=== PATIENT | female | born 1955 | race Caucasian/White ===

== ENCOUNTER 2023-01-07 08:59 | Outpatient (CLI) | payer MEDICARE, SELFPAY | END 2023-01-07 09:00 | disposition home or self-care (01) | PROVIDERS: Visit Provider Orthopaedic Surgery Sports Medicine | DX: Z01.818 Encounter for other preprocedural examination (principal) | CPT/HCPCS: 36415; 86850; 86900; 86901 ==

== ENCOUNTER 2023-01-09 09:41 | Day surgery (SDC) | payer MEDICARE, SELFPAY ==
[2023-01-09] VITALS (19 sets, daily range): BP systolic 94–148; BP diastolic 51–88; PULSE 62–78; RESP 12–20; TEMP 35.6–36.7; O2SAT 94–100; BMI 33.7
[2023-01-09] MEDS: LACTATED RINGERS 1000 ML 1,000 ML 100 ML IV (09:20)
--- NOTE | 2023-01-09 09:58 | CRLHL7_ITS ---
For Patients: As a result of the Cures Act, medical imaging exams and procedure reports are released immediately into your electronic medical record. You may view this report before your referring provider. If you have questions, please contact your health care provider. Indication: POST OP LEFT CLAUDIA Technique: AP hip centered pelvis and lateral view left hip Findings/Impression: Hardware from a left total hip arthroplasty is in satisfactory position. Bone alignment is normal. No sign of acute fracture. Postop changes are within normal limits. Dictated by Matias Villanueva MD @ 01/10/2023 10:29:06 AM (Electronically Signed)
[2023-01-09] MEDS: OXYCODONE (CR) 10 MG TAB.ER.12H PO (10:26)
[2023-01-09] MEDS: SODIUM CHLORIDE 0.9 % (FLUSH) 10 ML SYRINGE IVF (10:35)
--- NOTE | 2023-01-09 10:49 | SUR.PREOP ---
TIME?OUT:?1050 PT/RN/MDA?VERIFICATION?OF?SURGICAL?SITE,?PROCEDURE,?AND?CONSENT OBTAINED?PRIOR?TO?INVASIVE?PROCEDURE.
[2023-01-09] MEDS: MIDAZOLAM HCL 1 MG/ML inj IVP (10:50)
[2023-01-09] MEDS: fentaNYL 100 MCG/2 ML inj IVP (10:50)
[2023-01-09] MEDS: CEFAZOLIN 2 GM in 0.9 % SODIUM CHLORIDE Mini-bag 100 ML IVPB ×2 (11:14→16:08)
--- NOTE | 2023-01-09 11:15 | CRLHL7_ITS ---
For Patients: As a result of the Cures Act, medical imaging exams and procedure reports are released immediately into your electronic medical record. You may view this report before your referring provider. If you have questions, please contact your health care provider. Indication: Hip replacement surgery Technique: AP hip fluoroscopic images. Fluoroscopy time 41.1 seconds. Findings/Impression: Hardware from a left total hip arthroplasty is in satisfactory position. Dictated by Matias Villanueva MD @ 01/09/2023 1:24:00 PM (Electronically Signed)
--- NOTE | 2023-01-09 11:16 | P.NB_ITS ---
Nerve Block Nerve Block Time Seen by Provider: 10:55 Date Seen: 01/09/23 Type of block requested by surgeon for post-operative analgesia: SIMONE/LFCN Side: left Time out performed: Yes Verification of patient name: Yes Verification of date of : Yes Site marking: site marked Name of person performing procedure: Julius Continuous monitoring Was continuous monitoring of O2 sat, B/P, satellite project site monitor, recorded every 15 minutes?: Yes Procedure Checklist: sterile prep, needles and gloves Ultrasound guided. Images saved: Yes Medications given in 5ml increments after negative aspiration: Ropivicaine %: 0.5 mL: 30 Needle gauge: 20 Decadron (mg): 10 Precedex (mcg): 25 Patient tolerated procedure well: Yes Additional comments: Needle noted below psoas tendon needle noted adjacent to LFCN Block Charges Block Charge (with Pro Fee): Other Periph Nerve Block Use of Ultrasound Machine for Block: Yes- US Guidance/pain block
--- NOTE | 2023-01-09 11:16 | W.ANESCHARGE ---
Anesthesia Charges Start Date/Time Anesthesia Start Date: 01/09/23 Anesthesia Start Time: 11:05 Stop Date/Time Anesthesia Stop Date: 01/09/23 Anesthesia Stop Time: 13:31
--- NOTE | 2023-01-09 12:50 | P.ORPRC_ITS ---
Procedure Note Date of procedure: 01/09/23 Procedure: PREOPERATIVE DIAGNOSIS: 1. Left hip osteoarthritis, severe, primary POSTOPERATIVE DIAGNOSIS: 1. Left hip osteoarthritis, severe, primary PROCEDURE: 1. Left total hip arthroplasty-anterior approach 2. [id number] - intraoperative fluoroscopy up to 1 hour. SURGEON: Sunny Craven MD. SENIOR CYBER SECURITY ANALYST: Elias Galvez PA-C; YASHIRA Sabillon - Of note, a skilled executive assistant to general counsel was critical for this case to aid in patient positioning, tissue retraction, limb manipulation/positioning, dislocation/relocation, patient safety, and closure. ANESTHESIA: Spinal anesthetic EBL: 400 mL IMPLANTS: DePuy J&J uncemented total hip [place] cup size 54, hole eliminator, +0 neutral liner Actis stem, standard offset, size 8 +8.5 mm ceramic 36 mm head. COMPLICATIONS: None evident INDICATIONS: The patient is a pleasant 67-year-old female who has experienced severe left hip pain and difficulty bearing weight. Workup included x-rays which revealed severe osteoarthrosis in the hip. Given the deformity, the dysfunction, and the pain, as well as the failure of nonoperative management, recommendation was made for surgery. FINDINGS: Large effusion upon entering joint. Full-thickness chondral loss broadly to the femoral head as well as acetabular and femoral head/neck junction osteophytes. DESCRIPTION OF PROCEDURE: Following a thorough discussion of risks, benefits, and alternatives consent was obtained and the left hip was marked. The patient was brought to the operating room and placed supine on the operating table. Induction of anesthesia was undertaken. 2 g IV Ancef and 1 g tranexamic acid was administered within 1 hr of incision preoperatively. Proper time-out was performed identifying proper patient, site, procedure. The operative extremity was prepped and draped in the appropriate sterile fashion using ChloraPrep after the patient was positioned on the [place] table with head in neutral alignment and all bony prominences well padded. C-arm fluoroscopic imaging was utilized to confirm proper pelvis rotation and position, and to get true AP films of both the contralateral left, and the affected left hip. This is for comparison. A longitudinal incision was made starting approximately 1 cm distal to the ASIS, and 3-4 cm lateral. The incision was extended distally aiming toward the lateral border the patella. Sharp incision through skin and bovie cautery through the subcutaneous tissue allowed identification of the TFL fascia. This was sharply divided, and the fascia bluntly released from the muscle fibers as we dissected medial. Upon coming to the medial border, we were able to retract the TFL laterally, and penetrated the deeper fascia and identify the crossing circumflex vessels. These were ligated/cauterized. The rectus was elevated from the capsule, and retractors placed laterally and medially along the femoral neck to help with visualization of the capsule. We then performed an inverted T capsulotomy. The capsule was tagged for later repair. Retractors were placed inside the capsule. The femoral neck was visualized after releasing medially down to the lesser trochanter, along the saddle laterally, and up onto the acetabulum. The femoral neck cut was made in line with our preoperative templating. The head was removed in a single piece, and sized. We turned our attention to acetabular preparation. Initially, the labrum was resected from around the perimeter, the pulvinar was excised, allowing us to visualize the false wall. We started the reaming with a 43 mm reamer. This was medialized down to the true wall. We then enlarged our reamers sequentially up to one size less than the selected cup size. We trialed at the same size and found it to have an excellent fit. The selected cup was then opened, inserted, and impacted in line with the goal of 40-45? of abduction, and 20-25? of anteversion. This was confirmed on C-arm fluoroscopic imaging to be in the appropriate/goal position. Once the cup was placed we placed a hole eliminator and a liner consistent with preop planning. Attention was turned to the femoral preparation. The limb was extended, externally rotated, and adducted. The posteromedial capsule was released, as retractors were placed allowing excellent access to the proximal femur. Initially a box truck driver was followed by canal finder followed by various broaches. We broached sequentially up to size noted above, found it to have excellent rotational control, and trialing various heads and necks, revealed that appropriate neck offset, and the above noted head size provided the greatest stability, and mormonism of length, and offset. C-arm fluoroscopic imaging confirmed position of the stem, as well as leg lengths, which were compared with the pre procedure all fluoroscopic images. Trial implants were removed, the real femoral stem inserted, as was the ceramic head. After reducing, the leg was placed through range of motion and stability was confirmed anterior, posterior, and lateral. A 3 min Betadine soak was then performed, and thorough irrigation with normal saline followed. Closure of the capsule was performed with #1 PDS. Bleeding was confirmed to be controlled at this stage, and the TFL fascia was closed with #0 strata fix. Subcutaneous, and subcuticular closure was performed with 2-0 Vicryl and 4-0 Monocryl, respectively. Dressings were applied, and the patient was awoken from anesthesia and transferred the PACU in stable condition. A skilled executive assistant to general counsel was critical for this case to aid in patient positioning, tissue retraction, proximal femur exposure, limb manipulation/positioning, dislocation/relocation, patient safety, and closure. PLAN: 1. Weight bear as tolerated operative extremity. 2. 23 hr perioperative antibiotics. 3. Ice. 4. PT/OT consults for ambulation assistance/mobility education. 5. Social work consult for discharge planning. 6. DVT prophylaxis with at SCDs, Aristeo Hose, and Xarelto x5 days followed by aspirin for a total of 1 month..
--- NOTE | 2023-01-09 13:28 | W.ANESCHARGE ---
Anesthesia Charges Start Date/Time Anesthesia Start Date: 01/09/23 Anesthesia Start Time: 11:05 Stop Date/Time Anesthesia Stop Date: 01/09/23 Anesthesia Stop Time: 13:31
--- NOTE | 2023-01-09 14:56 | P.IMCN_ITS ---
Date of Consult Patient: [facility] Patient Consult date: 01/09/23 Requesting Physician: Orthopedics Primary Care Provider: Not a Local Provider Consult Narrative Reason for consult: medication management Narrative: Sunshine Higuera is a 67 year old healthy female who underwent an elective left total hip arthroplasty today. Operative and postoperative course have been unev entful. Pain is well controlled at this time. Review of Systems Status of ROS: Reports: 10 or more systems reviewed and unremarkable except as noted in History and below PFSH PFSH Medical History (Updated 01/09/23 @ 15:51 by Jennifer Castaneda MD) Arthritis Back pain Osteoarthritis of neck Seasonal allergies Surgical History (Updated 01/09/23 @ 14:58 by Jennifer Castaneda MD) History of abdominal surgery (1988) History of appendectomy (1963) Hx of tonsillectomy (1961) S/P total left hip arthroplasty Family History (Updated 01/02/23 @ 13:22 by Nimo Lay PA-C) Father Heart problem High blood pressure Cancer CHF (congestive heart failure) Mother High blood pressure Dementia Maternal Grandfather High blood pressure Stroke Maternal Grandmother High blood pressure Stroke Paternal Grandfather Diabetes High blood pressure Stroke Paternal Grandmother High blood pressure Stroke Brother Hemiplegia DVT (deep venous thrombosis) Brother Prostate cancer Social History (Updated 01/09/23 @ 15:48 by Jennifer Castaneda MD) Narrative: Lives independently. 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 Her friend and co-worker, Vivien, is here with her today and is of good support. Sunshine is a lifelong nonsmoker. Drinks 2 gin and tonics every 3-4 weeks. Denies recreational drug use. Smoking Status: Never smoker Do you use any of these nicotine containing products: None Second hand tobacco smoke exposure: No How often do you have a drink containing alcohol: monthly or less Alcohol type: wine and hard liquor How many standard drinks containing alcohol do you have on a typical day: 1 or 2 How often do you have six or more drinks on one occasion: Never AUDIT-C Alcohol total score: 1 Non-prescribed substance use: denies use Caffeine: Yes (coffee, 1-2 cups/day) service: No Meds Home Medications and Allergies Home Medications Medication Instructions Recorded Confirmed Type fexofenadine 60 mg tablet 180 mg PO Q24H 01/02/23 01/09/23 History Allergies Allergy/AdvReac Type Severity Reaction Status Date / Time acetaminophen Allergy Severe Hives Verified 01/09/23 10:01 [From Tylenol PM] amoxicillin Allergy Severe Hives Verified 01/09/23 10:01 diphenhydramine Allergy Severe Hives Verified 01/09/23 10:01 [From Tylenol PM] naproxen Allergy Severe Hives Verified 01/09/23 10:01 sulfamethoxazole Allergy Severe Hives Verified 01/09/23 10:01 [From Bactrim] trimethoprim [From Bactrim] Allergy Severe Hives Verified 01/09/23 10:01 ibuprofen Allergy Intermediate Hives Verified 01/09/23 10:01 latex Allergy Intermediate Rash Verified 01/09/23 10:01 NSAIDS (Non-Steroidal Allergy Unknown Verified 01/09/23 10:01 Anti-Inflamma Sulfa (Sulfonamide Allergy Unknown Verified 01/09/23 10:01 Antibiotics) band-aid Allergy Intermediate Rash Uncoded 01/02/23 12:53 Exam Narrative: Exam Narrative: General: No acute distress. Awake alert oriented x3. Obese. HEENT: Normocephalic atraumatic, pupils equally round and reactive to light and accommodation. Oropharynx clear. Mucous membranes are moist. No cervical lymphadenopathy, thyromegaly or carotid bruits. No JVD. Cardiovascular: Regular rate and rhythm. No murmurs, gallops, or rubs. Chest: No increased work of breathing. Clear to auscultation bilaterally. No crackles or wheezes. Abdomen: Bowel sounds present. Soft, nondistended, nontender. No hepatosplenomegaly or masses. Extremities: Left hip bandage is clean, dry, and intact. No edema, no cyanosis or clubbing. Skin: No jaundice, no pallor, no rashes. Const: Vital Signs, click to edit/add: Vital Signs - 24 hr 01/09/23 10:06 01/09/23 10:50 01/09/23 10:55 Temperature 98.1 F Pulse Rate 73 74 73 Pulse Rate [Right Pulse Oximeter] Respiratory Rate 16 16 16 Blood Pressure 114/87 112/85 113/51 L Blood Pressure [Le ft Arm] Blood Pressure [Ri ght Arm] Pulse Oximetry 97 98 99 Oxygen Delivery Me thod Nasal Cannula Nasal Cannula Oxygen Flow Rate 2 2 01/09/23 13:32 01/09/23 13:39 01/09/23 13:45 Temperature 97.2 F L Pulse Rate 71 73 68 Pulse Rate [Right Pulse Oximeter] Respiratory Rate 16 16 14 Blood Pressure 94/55 L 100/58 L 100/62 Blood Pressure [Le ft Arm] Blood Pressure [Ri ght Arm] Pulse Oximetry 95 99 99 Oxygen Delivery Me thod Room Air Nasal Cannula Nasal Cannula Oxygen Flow Rate 01/09/23 13:50 01/09/23 13:55 01/09/23 14:00 Temperature Pulse Rate 72 72 72 Pulse Rate [Right Pulse Oximeter] Respiratory Rate 14 14 12 Blood Pressure 98/64 101/61 100/53 L Blood Pressure [Le ft Arm] Blood Pressure [Ri ght Arm] Pulse Oximetry 98 98 100 Oxygen Delivery Me thod Nasal Cannula Nasal Cannula Nasal Cannula Oxygen Flow Rate 2 01/09/23 14:11 01/09/23 14:15 01/09/23 14:30 Temperature 96.0 F L 96.4 F L 96.6 F L Pulse Rate 66 Pulse Rate [Right Pulse Oximeter] 63 78 Respiratory Rate 20 20 20 Blood Pressure Blood Pressure [Le ft Arm] 102/72 Blood Pressure [Ri ght Arm] 102/72 103/66 116/75 Pulse Oximetry 96 Oxygen Delivery Me thod Room Air Room Air Room Air Oxygen Flow Rate 01/09/23 14:45 Temperature 96.6 F L Pulse Rate Pulse Rate [Right Pulse Oximeter] 74 Respiratory Rate 20 Blood Pressure Blood Pressure [Le ft Arm] Blood Pressure [Ri ght Arm] 105/74 Pulse Oximetry 94 Oxygen Delivery Me thod Room Air Oxygen Flow Rate Labs Labs: Ordering Physician: Sunny Craven M.D. Date of Service: 01/09/23 Procedure(s): XR hip LT 1V Accession Number(s): [id number] cc: Sunny Craven M.D.; Provider,Not a Local ~ For Patients: As a result of the Century Cures Act, medical imaging exams and procedure reports are released immediately into your electronic medical record. You may view this report before your referring provider. If you have questions, please contact your health care provider. Indication: Hip replacement surgery Technique: AP hip fluoroscopic images. Fluoroscopy time 41.1 seconds. Findings/Impression: Hardware from a left total hip arthroplasty is in satisfactory position. Dictated by Matias Villanueva MD @ 01/09/2023 1:24:00 PM (Electronically Signed) Assessment and Plan Assessment and plan (1) S/P total left hip arthroplasty: Status: Acute (2) Seasonal allergies: Status: Chronic Plan Routine postop cares. Pain is well controlled. She is currently taking fexofenadine every day for her seasonal allergies, so I will continue that while she is here. Thank you for the consult.
--- NOTE | 2023-01-09 18:22 | PC.NURSE ---
Addendum entered by Jacqueline Diaz RN 01/09/23 18:32: and changed the linen. She has been in the recliner since around 1600. VSS did tolerate a regular diet for dinner. Will continue to monitor until shift handoff. Original Note: End of Shift Note: Patient arrived to the unit around 1400 today from Surgery. Patient had spinal anesthesia with a block. Upon arrival pain level is 2. Pain level has not increase and she denies the need for pain medication. She was inc of urine as she did not realize she had to go as bottom is still numb. We did get her up to the recliner
[2023-01-09] MEDS: SENNOSIDES 1 TAB TABLET 2 TAB PO (21:26)
[2023-01-09] MEDS: OXYCODONE 5 MG TABLET PO (21:27)
--- NOTE | 2023-01-09 23:46 | PC.NURSE ---
VSS. 6 hour outcomes met. Up with 1 minimal assist, hiro activity well. Pain /, 2.5 mg Oxycodone given. Voiding large amounts, saline locked.
[2023-01-10] VITALS (11 sets, daily range): BP systolic 86–130; BP diastolic 48–92; PULSE 58–81; RESP 16–18; TEMP 36.4–36.6; O2SAT 97–100
[2023-01-10] MEDS: OXYCODONE 5 MG TABLET PO ×2 (01:37→06:55)
[2023-01-10] MEDS: CEFAZOLIN 2 GM in 0.9 % SODIUM CHLORIDE Mini-bag 100 ML IVPB ×2 (01:38→10:56)
--- NOTE | 2023-01-10 05:37 | PC.NURSE ---
Pt pleasant and cooperative. Up with assist of 1 a walker and a gait belt. She has voided. Passing flatus. Tolerating a reg diet. Pain controlled with 2.5mg of oxycodone.
[2023-01-10 06:40] LABS: Basophils Percent Auto 0.1 % (0.0-3.0); Eosinophils Percent Auto 0.2 % (0.0-7.0); Hematocrit 36.9 % (33.0-51.0); Hemoglobin* 12.3 gm/dL (12.0-16.0); Immature Granulocytes Pct Auto 1.6 %; Lymphocytes Percent Auto 10.4 % (20-44); Mean Corpuscular HGB Conc 33 gm/dL (32-36); Mean Corpuscular Hemoglobin 27 pg (26-34); Mean Corpuscular Volume 81 fL (80-100); Monocytes Percent Auto 8.4 % (0.0-11.0); Neutrophils Percent Auto 79.3 % (42.0-72.0); Platelet Count* 209 K/uL (140-440); RDW Coefficient of Variation % 13.3 % (11.5-15.5); Red Blood Count 4.58 m/uL (4.00-5.20); White Blood Count* 12.08 K/uL (4.50-11.00)
[2023-01-10 06:47] LABS: Slide Review Reflex No
[2023-01-10 06:55] LABS: Sodium* 135 mmol/L (135-149)
[2023-01-10 06:56] LABS: Potassium* 4.1 mmol/L (3.6-5.1)
[2023-01-10 06:58] LABS: Creatinine* 0.6 mg/dL (0.5-1.5); Est. Creatinine Clearance* 51.81; Estimated Glomerular Filt Rate 99 ml/min
[2023-01-10 06:59] LABS: Blood Urea Nitrogen* 11 mg/dL (7-30)
[2023-01-10] MEDS: LACTATED RINGERS 1000 ML 500 ML IV ×2 (09:09→10:59)
--- NOTE | 2023-01-10 09:20 | P.ORPN_ITS ---
Subjective Subjective Date Seen: 01/10/23 Principal diagnosis: Status postop day 1, left total hip arthroplasty - anterior approach Interval history: Patient reports doing well. No acute events over night. Describes pain as more of a discomfort, which is minimal. Pain managed with scheduled/PRN medications and ice. DVT prophylaxis rivaroxaban, bilateral knee high Aristeo stockings, and SCDs.. Denies fevers, chills, aches, N/V, CP, SOB/OVALLES, tachycardia, or ligh theadedness. Ortho Exam Narrative Exam Narrative: -Patient appears comfortable in recliner; no apparent acute distress. Her friend is present. -Alert and oriented times 3 -Operative hip mildly swollen; soft tissues supple; no obvious erythema. Ecchymosis minimal. Warmth appropriate -Surgical dressing clean, dry, intact; no obvious drainage, no erythematous streaking peripheral to the bandage -Bilateral calves soft and supple; no significant swelling, edema, tenderness, erythema, discoloration, warmth, or palpable cords -2+ DP/PT pulses, intact dermatomes and myotomes distally (5/5 strength). No numbness about the lateral femoral cutaneous nerve distribution. Const Vital Signs, click to edit/add: Vital Signs - 24 hr 01/09/23 10:06 01/09/23 10:50 01/09/23 10:55 Temperature 98.1 F Pulse Rate 73 74 73 Pulse Rate [Right Pulse Oximeter] Respiratory Rate 16 16 16 Blood Pressure 114/87 112/85 113/51 L Blood Pressure [Left Arm] Blood Pressure [Right Arm] Pulse Oximetry 97 98 99 Oxygen Delivery Method Nasal Cannula Nasal Cannula Oxygen Flow Rate 2 2 01/09/23 13:32 01/09/23 13:39 01/09/23 13:45 Temperature 97.2 F L Pulse Rate 71 73 68 Pulse Rate [Right Pulse Oximeter] Respiratory Rate 16 16 14 Blood Pressure 94/55 L 100/58 L 100/62 Blood Pressure [Left Arm] Blood Pressure [Right Arm] Pulse Oximetry 95 99 99 Oxygen Delivery Method Room Air Nasal Cannula Nasal Cannula Oxygen Flow Rate 01/09/23 13:50 01/09/23 13:55 01/09/23 14:00 Temperature Pulse Rate 72 72 72 Pulse Rate [Right Pulse Oximeter] Respiratory Rate 14 14 12 Blood Pressure 98/64 101/61 100/53 L Blood Pressure [Left Arm] Blood Pressure [Right Arm] Pulse Oximetry 98 98 100 Oxygen Delivery Method Nasal Cannula Nasal Cannula Nasal Cannula Oxygen Flow Rate 2 01/09/23 14:11 01/09/23 14:15 01/09/23 14:30 Temperature 96.0 F L 96.4 F L 96.6 F L Pulse Rate 66 Pulse Rate [Right Pulse Oximeter] 63 78 Respiratory Rate 20 20 20 Blood Pressure Blood Pressure [Left Arm] 102/72 Blood Pressure [Right Arm] 102/72 103/66 116/75 Pulse Oximetry 96 Oxygen Delivery Method Room Air Room Air Room Air Oxygen Flow Rate 01/09/23 14:45 01/09/23 16:44 01/09/23 16:00 Temperature 96.6 F L 96.6 F L Pulse Rate Pulse Rate [Right Pulse Oximeter] 74 74 64 Respiratory Rate 20 20 20 Blood Pressure Blood Pressure [Left Arm] Blood Pressure [Right Arm] 105/74 148/73 H 124/80 Pulse Oximetry 94 98 97 Oxygen Delivery Method Room Air Room Air Room Air Oxygen Flow Rate 01/09/23 17:00 01/09/23 18:00 01/09/23 19:00 Temperature 97.3 F L Pulse Rate Pulse Rate [Right Pulse Oximeter] 76 74 62 Respiratory Rate 20 20 16 Blood Pressure Blood Pressure [Left Arm] Blood Pressure [Right Arm] 120/74 113/64 109/70 Pulse Oximetry 97 98 97 Oxygen Delivery Method Room Air Room Air Room Air Oxygen Flow Rate 01/09/23 19:50 01/10/23 03:00 Temperature 97.4 F L 97.8 F Pulse Rate Pulse Rate [Right Pulse Oximeter] 70 69 Respiratory Rate 18 16 Blood Pressure Blood Pressure [Left Arm] Blood Pressure [Right Arm] 131/88 130/75 Pulse Oximetry 96 98 Oxygen Delivery Method Room Air Room Air Oxygen Flow Rate Assessment and Plan Assessment and plan (1) S/P total left hip arthroplasty: Problem details: POD 1 left total hip arthroplasty - anterior approach Status: Acute (2) Seasonal allergies: Status: Chronic Plan - Complete 23 hour perioperative antibiotics. - PT/OT consult for education and assistance. - Social work consult for discharge planning - Prescribed analgesics as needed - DVT prophylaxis: Rivaroxaban, bilateral knee high Aristeo Hose stockings and SCDs - Anticipation is for discharge to home today 01/10/2023 if the patient remains medically stable, pain is controlled, and they are safe with mobilization. A friend will be staying with her.
--- NOTE | 2023-01-10 09:22 | P.DS_ITS ---
DS: Providers Provider Date Seen: 01/10/23 Date of admission: Med/Surg Recovery 01/09/2023 Primary care physician: Not a Local Provider Consults: 01/09/23 14:19 Consult to Occupational Therapy [CONS] Routine Comment: Reason(s) for OT Consult:: ADLs Prior to Discharge Any Restrictions?:: No Restrictions Comment: Consult to Physical Therapy [CONS] Routine Comment: Ambulate in the pete today Reason(s) for PT Consult:: Evaluate and Treat Any Restrictions?:: No Restrictions Comment: Nursing Activity Consult to Physician [CONS] Routine Comment: Consulting Provider: Hospitalists Has provider been notified: No Consult to [employer] [CONS] Routine Comment: Reason for Consult:: Discharge Planning Needs Attending Physician on discharge: Sunny Craven MD Date of Discharge: 01/10/23 DS: Diagnosis Discharge Diagnosis (1) S/P total left hip arthroplasty: Status: Acute Problem details: POD 1 left total hip arthroplasty - anterior approach DS: Summary Hospital Course Hospital Course: The patient has a history of left hip osteoarthritis, primary, severe. After appropriate preoperative evaluation, the patient underwent left total hip arthroplasty. Postoperatively given anticoagulation for deep vein thrombosis prophylaxis. They progressed to PT/OT and were felt ready and prepared for discharge to home with appropriate pain medication and anticoagulation medications. Status at Discharge Functional status at discharge: uses cane/walker Overall status at discharge: patient is progressing back to baseline Time Spent with Patient Time attestation: Total time spent providing and/or coordinating discharge services: Time spent: Less than 30 minutes Exam Const: Vital Signs, click to edit/add: Vital Signs - 24 hr 01/09/23 10:06 01/09/23 10:50 01/09/23 10:55 Temperature 98.1 F Pulse Rate 73 74 73 Pulse Rate [Right Pulse Oximeter] Respiratory Rate 16 16 16 Blood Pressure 114/87 112/85 113/51 L Blood Pressure [Le ft Arm] Blood Pressure [Ri ght Arm] Pulse Oximetry 97 98 99 Oxygen Delivery Me thod Nasal Cannula Nasal Cannula Oxygen Flow Rate 2 2 01/09/23 13:32 01/09/23 13:39 01/09/23 13:45 Temperature 97.2 F L Pulse Rate 71 73 68 Pulse Rate [Right Pulse Oximeter] Respiratory Rate 16 16 14 Blood Pressure 94/55 L 100/58 L 100/62 Blood Pressure [Le ft Arm] Blood Pressure [Ri ght Arm] Pulse Oximetry 95 99 99 Oxygen Delivery Me thod Room Air Nasal Cannula Nasal Cannula Oxygen Flow Rate 01/09/23 13:50 01/09/23 13:55 01/09/23 14:00 Temperature Pulse Rate 72 72 72 Pulse Rate [Right Pulse Oximeter] Respiratory Rate 14 14 12 Blood Pressure 98/64 101/61 100/53 L Blood Pressure [Le ft Arm] Blood Pressure [Ri ght Arm] Pulse Oximetry 98 98 100 Oxygen Delivery Me thod Nasal Cannula Nasal Cannula Nasal Cannula Oxygen Flow Rate 2 01/09/23 14:11 01/09/23 14:15 01/09/23 14:30 Temperature 96.0 F L 96.4 F L 96.6 F L Pulse Rate 66 Pulse Rate [Right Pulse Oximeter] 63 78 Respiratory Rate 20 20 20 Blood Pressure Blood Pressure [Le ft Arm] 102/72 Blood Pressure [Ri ght Arm] 102/72 103/66 116/75 Pulse Oximetry 96 Oxygen Delivery Me thod Room Air Room Air Room Air Oxygen Flow Rate 01/09/23 14:45 01/09/23 16:44 01/09/23 16:00 Temperature 96.6 F L 96.6 F L Pulse Rate Pulse Rate [Right Pulse Oximeter] 74 74 64 Respiratory Rate 20 20 20 Blood Pressure Blood Pressure [Le ft Arm] Blood Pressure [Ri ght Arm] 105/74 148/73 H 124/80 Pulse Oximetry 94 98 97 Oxygen Delivery Me thod Room Air Room Air Room Air Oxygen Flow Rate 01/09/23 17:00 01/09/23 18:00 01/09/23 19:00 Temperature 97.3 F L Pulse Rate Pulse Rate [Right Pulse Oximeter] 76 74 62 Respiratory Rate 20 20 16 Blood Pressure Blood Pressure [Le ft Arm] Blood Pressure [Ri ght Arm] 120/74 113/64 109/70 Pulse Oximetry 97 98 97 Oxygen Delivery Me thod Room Air Room Air Room Air Oxygen Flow Rate 01/09/23 19:50 01/10/23 03:00 Temperature 97.4 F L 97.8 F Pulse Rate Pulse Rate [Right Pulse Oximeter] 70 69 Respiratory Rate 18 16 Blood Pressure Blood Pressure [Le ft Arm] Blood Pressure [Ri ght Arm] 131/88 130/75 Pulse Oximetry 96 98 Oxygen Delivery Me thod Room Air Room Air Oxygen Flow Rate DS: Data Data Completed and Pending Labs on day of discharge: Labs from last 24 hours 01/10/23 01/10/23 06:11 06:11 WBC 12.08 H RBC 4.58 Hgb 12.3 Hct 36.9 MCV 81 MCH 27 MCHC 33 RDW Coeff of Mikala 13.3 Plt Count 209 Neut % (Auto) 79.3 H Lymph % (Auto) 10.4 L [place] % (Auto) 8.4 Eos % (Auto) 0.2 Baso % (Auto) 0.1 Neut # (Auto) 9.60 H Lymph # (Auto) 1.30 [place] # (Auto) 1.00 H Eos # (Auto) 0.00 Baso # (Auto) 0.00 Sodium 135 Potassium 4.1 BUN 11 Creatinine 0.6 Estimated Creat Clear 51.81 Estimated GFR 99 Discharge Plan Discharge Disposition: Home, Self-Care Discharging Surgeon: Sunny Craven Follow-Up Appointment: 1 week PO with Elias BARNETT Prescriptions: New sennosides-docusate sodium [Senna-S] 8.6-50 mg tablet 1 - 4 tab-cap PO BID PRN (Reason: constipation) Qty: 60 0RF Rx Instructions: Hold medication if experiencing loose stools. aspirin 81 mg tablet,delayed release (DR/EC) 81 mg PO BID Qty: 50 0RF Rx Instructions: Medication to help prevent blood clots postoperatively; take TWICE daily. oxycodone 5 mg tablet 2.5 - 5 mg PO Q4-6H MDD 6 PRN (Reason: pain) Qty: 42 0RF Rx Instructions: Take as needed for postop pain: 2.5mg mild pain, 5mg moderate-severe pain; wean as tolerated. rivaroxaban 10 mg tablet 10 mg PO DAILY Qty: 4 0RF Rx Instructions: Medication for deep vein clot prevention post surgery. Complete this medication before starting Aspirin. Continued fexofenadine 60 mg tablet 180 mg PO Q24H Activity Level: Activity as Tolerated, Weight Bearing as Tolerated, Use Cane and Use Walker Activity Detail: Wound: ?Do not remove original dressing; we will remove this at first postop visit in 1 week. Only remove dressing if integrity is in question. ?No immersing wound in water; showering okay; light scrub with your hand and body soap, rinse, dab dry ?Sutures are under the skin, will dissolve; allow surgical glue to come off naturally; do not scrub the wound or apply ointments/lotions ?Call our office with any redness that streaks, excessive drainage from the wound, or wound gapping. Ice/Elevate: ?Ice as needed for swelling and discomfort (cryocuff or ice pack); elevate frequently above the heart SCOTT socks: ?Wear for 1 month, remove for 1 hour 3 times per day ?These are frustrating to take on/off, but are important for blood clot p revention for 1 month after surgery Blood Clot Prevention (DVT): ?Medication: Rivaroxaban, and transition to 81 mg aspirin by mouth twice daily (total one month of protection). Driving: ?Do not drive while taking narcotic pain medication ?Anticipate 4-6 weeks no driving if operative leg is driving leg Dental: ?No elective dental work for 6 months post-op. If there is an urgent/emergent dental need, contact our office for an antibiotic prescription. Smoking/Alcohol: ?Do not smoke; do no drink alcohol especially when taking postoperative oral narcotic medication Seek Care from you Primary Care Provider if you experience the following issues in the postoperative phase and beyond: ?Bacterial infections such as: pneumonia, bacterial skin infection (cellulitis), UTI, high fever, chills unrelated to the operative body part - call your primary care physician urgently for treatment in hopes to protect your health and the metal implant. Referrals: ?PT, OT per patient preference - evaluate treat total hip arthroplasty protocol (gait training, ROM, ADLs) Follow up: ?Ortho surgeon follow-up in 6 weeks; repeat radiographs AP pelvis, cross-table lateral operative hip ?PA-C visit in 1 week *If there are any acute concerns regarding your surgery, please call our orthopedic clinic ([phone]) Discharge Diet: Regular Patient Instructions: Surgical Site Infections (DC) Forms: Work/School Release Follow-up: Provider,Not a Local [Primary Care Provider] - Discharge Orders: Discharge Order (Routine); Ordered 01/10/23 Ordered By: Elias Galvez Consulting provider completed their portion of the discharge: Yes
[2023-01-10] MEDS: SENNOSIDES 1 TAB TABLET 2 TAB PO (10:58)
[2023-01-10] MEDS: RIVAROXABAN 10 MG TABLET PO (10:58)
--- NOTE | 2023-01-10 11:18 | PC.SOCIAL ---
Met with pt. to discuss discharge plans. Pt. lives in a 2nd floor apartment with an elevator and plans to discharge home with family support. Pt. does not feel she will need any additional resources for assistance at home but is aware she can contact social media designer if she needs assistance.
--- NOTE | 2023-01-10 13:11 | PC.NURSE ---
Pt alert and oriented, pleasant. Vitals stable. Pt had lower BP this AM, 1L LR bolus admin per MD order, BP stable and pt cleared for d/c from MD. Pt denies symptoms and concerns, vitals WDL, pt tolerating activity, diet and voiding without difficulty. IV removed, d/c instructions given to pt, pt's cousin at bedside as well. Pt denies concerns, questions answered. Pt given WC ride out by SHAY at 1300 to family car.
== END 2023-01-10 13:00 | disposition home or self-care (01) ==
LOC: OR 09:42 → MEDSURG 09:47
PROVIDERS: Visit Provider Orthopaedic Surgery Sports Medicine
PROC: (CPT 27130; principal; 2023-01-09 11:15)
DX: M16.12 Unilateral primary osteoarthritis, left hip (principal); J30.2 Other seasonal allergic rhinitis
CPT/HCPCS: 27130; 01214; 36415; 64450; 73501; 76000; 76942; 82565; 84132; 84295; 84520; 85025; 97110; 97116; 97162; 97165; 97535; A9270; C1776; J0690; J1100; J2250; J2370; J2704; J2795; J3010; J7120

== ENCOUNTER 2023-02-14 10:15 | Outpatient (RCR) | payer MEDICARE, SELFPAY ==
--- NOTE | 2023-01-05 13:16 | PT.OPE ---
PT [facility] Outpatient Eval PT [facility] Outpatient Eval Start: 01/05/23 11:54 Freq: Status: Active Protocol: Document 01/05/23 12:09 LOVELY (Rec: 01/05/23 13:14 LOVELY Desktop) E-signed By Stephane Doshi, PT, ATC Physical Therapy Outpatient Evaluation Insurance Information Recert Due Date 04/04/23 Insurance Name Medicare B Medical Diagnosis M16.12 total hip arthroplasty M16.12 unilateral primary OA, left hip Treating Diagnosis L hip pain L hip stiffness Referring MD Levi Subjective Subjective Emilie says she is scheduled for her L CLAUDIA on . She is very content with her preparation for the surgery and has little concern. She has struggled immensely over the past few months with L hip pain, stiffness and multiple functional difficulties. 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 Posture Unable to extend hip in supine position, 15 degrees hip flex position Assessment Assessment/Impression Emilie is a pleasant 66 year old woman scheduled for L CLAUDIA on 01/09/23. Although she lives alone in her apartment, she has assistance scheduled with family to aid with her care. She has struggled with all ADL 's secondary to pain and reduced L hip ROM. Dressing, steps and standing walking have been particularly compensated. She is looking forward to her procedure next week! She has been properly prepared for her CLAUDIA surgery by educating her in post-op pain control strategies, assistive device utilization, her CLAUDIA home ex.s and transfer training. Primary Functional Limitations Standing > 5 min Walking > a few hundred feet Bed transfers Sleeping Plan of Care Rehabilitation Potential Good Physical Therapy Goals 1. To understand and demonstrate correct procedure with assistive device usage, transfers and home ex.s (pre- op goal) 2.Able to lift the L leg from floor to table-bed independently without UE assistance x 4 weeks. 3.Able to walk x 100 feet without assistive device with equal stride length and WB'ing time x 12 weeks 4.L quad set to 4/5. 5.Able to flatten L hip to table or bed, hip ext to zero degrees. 6.Independent self care and mobility x 2 weeks 7.Able to don socks and tie her shoes, hip flex to 90 degrees in sitting. Coordination/Communication With Referral Source Frequency/Duration 1-2x per week 8-16 weeks Patient Will Be Discharged From Therapy Independent w/HEP, Independently Progressing Evaluation Billing Untimed Code Treatment Minutes 30 PT Eval No Charge No Complexity Low Certification Information Initial Certification Date 01/05/23 Ending Certification Date 04/04/23 Provider Signature Shows Agreement With POC & Medical Necessity Physician Signature & Date Requested Please Sign/Date Here Physician Comment/Change : Physician NPI Number #
== END 2023-02-14 14:08 | disposition home or self-care (01) ==
PROVIDERS: Visit Provider Orthopaedic Surgery Sports Medicine
DX: M16.12 Unilateral primary osteoarthritis, left hip (principal); Z96.649 Presence of unspecified artificial hip joint; M25.552 Pain in left hip; M25.652 Stiffness of left hip, not elsewhere classified; Z51.89 Encounter for other specified aftercare
CPT/HCPCS: 97110; 97140; 97161

== ENCOUNTER 2023-06-13 14:13 | Outpatient (CLI) | payer MEDICARE, SELFPAY | END 2023-06-13 14:14 | disposition home or self-care (01) | LOC: INJ CL 14:15 | PROVIDERS: Visit Provider Family Medicine | DX: M17.11 Unilateral primary osteoarthritis, right knee (principal); M25.561 Pain in right knee | CPT/HCPCS: 64454 ==

== ENCOUNTER 2023-07-04 12:46 | Outpatient (CLI) | payer MEDICARE, SELFPAY ==
--- NOTE | 2023-07-04 13:53 | W.ANESCHARGE ---
Anesthesia Charges Start Date/Time Anesthesia Start Date: 07/04/23 Anesthesia Start Time: 14:00 Stop Date/Time Anesthesia Stop Date: 07/04/23 Anesthesia Stop Time: 14:35
--- NOTE | 2023-07-04 14:41 | W.ANESCHARGE ---
Anesthesia Charges Start Date/Time Anesthesia Start Date: 07/04/23 Anesthesia Start Time: 14:00 Stop Date/Time Anesthesia Stop Date: 07/04/23 Anesthesia Stop Time: 14:35
== END 2023-07-04 12:47 | disposition home or self-care (01) ==
LOC: INJ CL 12:48
PROVIDERS: PCP Family Medicine; Visit Provider Family Medicine
DX: M17.11 Unilateral primary osteoarthritis, right knee (principal); M25.561 Pain in right knee; G89.29 Other chronic pain
CPT/HCPCS: 1991; 64624

== ENCOUNTER 2023-07-11 06:25 | Outpatient (CLI) | payer MEDICARE, SELFPAY ==
--- NOTE | 2023-07-11 07:56 | W.ANESCHARGE ---
Anesthesia Charges Start Date/Time Anesthesia Start Date: 07/11/23 Anesthesia Start Time: 07:25 Stop Date/Time Anesthesia Stop Date: 07/11/23 Anesthesia Stop Time: 07:55
--- NOTE | 2023-07-11 08:09 | W.ANESCHARGE ---
Anesthesia Charges Start Date/Time Anesthesia Start Date: 07/11/23 Anesthesia Start Time: 07:25 Stop Date/Time Anesthesia Stop Date: 07/11/23 Anesthesia Stop Time: 07:55
== END 2023-07-11 06:26 | disposition home or self-care (01) ==
LOC: OP CLINIC 06:25
PROVIDERS: PCP Family Medicine; Visit Provider Surgery
DX: Z12.11 Encounter for screening for malignant neoplasm of colon (principal); K63.5 Polyp of colon; K57.30 Diverticulosis of large intestine without perforation or abscess without bleeding
CPT/HCPCS: 00811; 45385; 88305; J2704

== ENCOUNTER 2023-07-26 11:15 | Outpatient (RCR) | payer MEDICARE, SELFPAY ==
--- NOTE | 2023-06-21 18:21 | PT.OPE ---
[facility] Outpatient Eval PT [facility] Outpatient Eval Start: 06/21/23 17:52 Freq: Status: Active Protocol: Document 06/21/23 17:53 LOVELY (Rec: 06/21/23 18:18 LOVELY [id number]) E-signed By Stephane Doshi, PT, ATC Physical Therapy Outpatient Evaluation Insurance Information Insurance Name Medicare B Medical Diagnosis s/p total left hip arthroplasty Z96.642 presence of left artificial hip joint Treating Diagnosis L anterior thigh pain Referring MD [place] Subjective Subjective [place] returns to PT because of nagging L anterior thigh pain-feels knotted all the time. L CLAUDIA 01/09/23 with very good surgical and rehab outcome (completed rehab with no anterior thigh pain at that time.). In April of 2023 she began feeling soreness and tightness in the front of the left thigh. Symptoms have progressively worsened since. Tightness worsens with standing and lessens when sitting although a low grade presence is always there. Lately, the L leg has also felt weaker creating some balance challenges. No report of spasm in the thigh or hip flexor and no pain or tightness in the L hip. 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 She also says she has DJD within both knees that will eventually require replacement . Synvisc no longer lessens knee symptoms so she is planning to have ablation procedures to both knees yet this summer. 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 Back flexion is full and pain free. Ext and L sidebending intensify L thigh-ant hip symptoms. Strength L knee ext 4/5, limited by pain in anterior thigh Swelling L ankle mild to moderate. Compression sleeve being worn. Palpation Some increased sensitivity to palpation over the mid to proximal L thigh. Quad.s and hip flexor. Tender to direct pressure through R SI joint and L5 vertebrae Balance & Gait R SLS x 10, L SLS x 5 Posture mild to moderate lumbar lordois, anterior pelvic tilt presence bilaterally. Other/Pertinent Objective SLR, Slump Test, Valsalva Negative bilaterally Assessment Assessment/Impression Emilie is pleasant and well known in therapy from her recovery from R CLAUDIA earlier in the year. Onset of anterior L quad and hip flexor symptoms in April is creating difficulty with ADL's, work performance and her balance. She has been stretching the L iliopsoas and quadriceps for the past few weeks without it lessening symptoms. The examination did not find any prominent tightness in the thigh or hip muscles. I feel she could be having radicular symptoms extending into the L anterior hip and thigh secondary to neural impingement-stenosis in her lower back. Mechanics of the lumbar spine that close the left side-EXT and L Sidebending reproduce symptoms as does standing. A therapy program addressing L anterior thigh and hip stretching, abdominal-core stabilization and L LE strengthening is advised. Balance exercises should also be built into POC. Primary Functional Limitations Transitions sit to stand Extended standing or walking Plan of Care Rehabilitation Potential Good Physical Therapy Goals 1.Independent and correct performance of HEP for core- abdominal-hip and LE strengthening. 2.Posture awareness with transverse abdominis co- contraction. 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 Coordination/Communication With Referral Source Frequency/Duration 1-2x per week 6-12 weels Patient Will Be Discharged From Therapy Independent w/HEP, Independently Progressing Evaluation Billing Untimed Code Treatment Minutes 30 PT Eval No Charge No Complexity Low Certification Information Initial Certification Date 06/21/23 Ending Certification Date 09/21/23 Provider Signature Shows Agreement With POC & Medical Necessity Physician Signature & Date Requested Please Sign/Date Here Physician Comment/Change : Physician NPI Number #
== END 2023-11-23 23:59 | disposition home or self-care (01) ==
PROVIDERS: Visit Provider Orthopaedic Surgery Sports Medicine
DX: M25.561 Pain in right knee (principal); Z96.642 Presence of left artificial hip joint; M79.18 Myalgia, other site; M79.652 Pain in left thigh; M51.36 Other intervertebral disc degeneration, lumbar region; M54.16 Radiculopathy, lumbar region; M25.511 Pain in right shoulder; M43.6 Torticollis; M25.69 Stiffness of other specified joint, not elsewhere classified; M54.89 Other dorsalgia; M54.2 Cervicalgia; Z74.09 Other reduced mobility; M54.10 Radiculopathy, site unspecified; Z51.89 Encounter for other specified aftercare
CPT/HCPCS: 97032; 97110; 97140; 97161; J2704

== ENCOUNTER 2023-09-27 12:22 | Outpatient (CLI) | payer MEDICARE, SELFPAY ==
--- NOTE | 2023-09-27 13:00 | CRLHL7_ITS ---
For Patients: As a result of the Century Cures Act, medical imaging exams and procedure reports are released immediately into your electronic medical record. You may view this report before your referring provider. If you have questions, please contact your health care provider. BILATERAL SCREENING MAMMOGRAM WITH COMPUTER-AIDED DETECTION AND TOMOSYNTHESIS TECHNIQUE: CC and MLO views were obtained. These mammographic images have been obtained using full-field digital technique. These mammographic images were interpreted with the benefit of computer-aided detection. Breast Tomosynthesis was used in this interpretation. COMPARISON FILM: Baseline. FINDINGS: There are scattered areas of fibroglandular density IMPRESSION: There is no radiographic evidence for malignancy. ASSESSMENT: BI-RADS Category 1: Negative RECOMMENDATION: Routine screening mammogram in 1 year. A lay language report of this examination will be provided to the patient. Matias Villanueva M.D. Diagnostic Radiologist [email or web address] KUN/Dictated by: Matias Villanueva MD @ 09/28/2023 12:42:00 PM (Electronically Signed)
--- NOTE | 2023-09-27 13:30 | CRLHL7_ITS ---
For Patients: As a result of the Century Cures Act, medical imaging exams and procedure reports are released immediately into your electronic medical record. You may view this report before your referring provider. If you have questions, please contact your health care provider. DXA BONE MINERAL DENSITY STUDY Reason for exam: Screening. Current height (in): 66.0. Weight (lb): 205.0. Menopause age: 53. Ethnicity: White. 1. Have you had a previous hip or vertebral fracture? No. 2. Have you had any fractures during your adult life which did not result from significant trauma (e.g., auto accident)? No. 3. Did either of your parents have a hip fracture? No. 4. Do you smoke? No. 5. Have you ever taken Glucocorticoids? No. 6. Do you have rheumatoid arthritis? No. 7. Do you have secondary osteoporosis? No. 8. Do you drink 3 or more alcoholic drinks per day? No. 9. Are you being treated for osteoporosis? No. 10. Have you ever taken any of the following medications: Actonel, Evista, Fosamax, Miacalcin, Reclast, Boniva, Forteo, HRT (i.e. estrogen/hormone therapy), Protelos, Prolia, Vitamin D, Calcium, other ??? please specify. ANSWER: No. 11. Do you have any of the following medical conditions: Anorexia or bulimia, asthma or emphysema, end stage renal disease, hyperparathyroidism, any seizure disorders, cancer, inflammatory bowel diseases, hysterectomy, other ??? please specify. ANSWER: No. 12. What was your maximum height (inches)? 66. 13. Do you perform weight bearing exercise regularly? Yes. 14. Do you regularly consume dairy products? Yes. 15. Do you drink caffeinated beverages? Yes. 16. At what age did your period start? 13. 17. Are you premenopausal? No. 18. How many full term pregnancies have you had? Zero. 19. Have you ever missed your period for more than 6 months in a row (not including or menopause)? No. TECHNIQUE: Bone mineral density study was performed using the Revuze. FINDINGS: The results of the study expressed as bone mineral density (BMD) are as follows: Lumbar spine L1 to L3: BMD: 1.040 g/cm2. T-score: 0.2. Z-score: 2.0. Neck Right: BMD: 0.688 g/cm2. T-score: -1.5. Z-score: 0.2. Total Right: BMD: 0.801 g/cm2. T-score: -1.2. Z-score: 0.2. IMPRESSION: Osteopenia. FRAX 10-year Fracture Risk Major Osteoporotic Fracture: 8.6 percent Hip Fracture: 0.9 percent Reported Risk Factors: [place] () Neck BMD=0.688, BMI=33.1. Matias Villanueva M.D. Diagnostic Radiologist [email or web address] [email or web address]/alan / be/Dictated by: Matias Villanueva MD @ 09/28/2023 5:48:00 AM (Electronically Signed)
== END 2023-09-27 12:23 | disposition home or self-care (01) ==
LOC: MAMMO 12:23
PROVIDERS: PCP Family Medicine; Visit Provider Family Medicine
DX: Z12.31 Encounter for screening mammogram for malignant neoplasm of breast (principal)
CPT/HCPCS: 77063; 77067; 77080

== ENCOUNTER 2023-10-05 09:58 | Outpatient (CLI) | payer MEDICARE, SELFPAY | END 2023-10-05 09:59 | disposition home or self-care (01) | LOC: NFLDREF 10-06 11:32 | PROVIDERS: PCP Family Medicine; Referring Provider Family Medicine; Visit Provider Family Medicine | DX: Z00.00 Encounter for general adult medical examination without abnormal findings (principal); Z13.6 Encounter for screening for cardiovascular disorders | CPT/HCPCS: 80048; 80061 ==

== ENCOUNTER 2023-11-17 14:41 | Emergency (ER) | payer MEDICARE, SELFPAY ==
[2023-11-17 15:38] VITALS: BP 186/96; PULSE 65; RESP 18; TEMP 35.8; O2SAT 97; BMI 34.5
[2023-11-17 17:47] VITALS: BP 160/110
--- NOTE | 2023-11-17 17:48 | ED_ITS ---
HPI - General Adult General Date Seen: 11/17/23 Chief complaint: Hypertension Stated complaint: Elevated BP Time Seen by Provider: 11/17/23 15:56 Source: patient Mode of arrival: ambulatory Limitations: no limitations History of Present Illness HPI narrative: Patient is a 68-year-old female presenting to emergency department for hypertension. She has no history of hypertension. She was at her OB provider to get an ultrasound when they noticed her blood pressure was elevated. They checked it several times in the high sick got to was stool 4 systolic she states. She was sent here to the emergency department. She has denies any symptoms at all. Says she feels completely fine and normal. Denies chest pain, shortness of breath, lightheadedness, dizziness, fevers, chills, headache, vision changes, abdominal pain,. She denies any other concerns at this time Related Data Home Medications Medication Instructions Recorded Confirmed fexofenadine 60 mg tablet 180 mg PO Q24H 01/02/23 11/14/23 mv-mn-folic 200 mcg-vit K 15 cap PO 09/14/23 11/14/23 mcg-lutein 5 mg-zeaxanthin 1 mg capsule (PreserVision AREDS 2 Plus Multivit) Previous Rx's Medication Instructions Recorded iron,carbonyl 65 mg-vitamin C 125 1 tab PO QDAY #90 tabs 10/10/23 mg tablet,delayed release (Vitron-C) triamcinolone acetonide 0.1 % 1 applic topical BID PRN rash #80 10/10/23 topical cream grams Allergies Allergy/AdvReac Type Severity Reaction Status Date / Time acetaminophen Allergy Severe Hives Verified 11/17/23 13:42 [From Tylenol PM] amoxicillin Allergy Severe Hives Verified 11/17/23 13:42 diphenhydramine Allergy Severe Hives Verified 11/17/23 13:42 [From Tylenol PM] naproxen Allergy Severe Hives Verified 11/17/23 13:42 oxycodone Allergy Severe Hypotension Verified 11/17/23 13:42 sulfamethoxazole Allergy Severe Hives Verified 11/17/23 13:42 [From Bactrim] trimethoprim [From Bactrim] Allergy Severe Hives Verified 11/17/23 13:42 ibuprofen Allergy Intermediate Hives Verified 11/17/23 13:42 latex Allergy Intermediate Rash Verified 11/17/23 13:42 NSAIDS (Non-Steroidal Allergy Unknown Verified 11/17/23 13:42 Anti-Inflamma Sulfa (Sulfonamide Allergy Unknown Verified 11/17/23 13:42 Antibiotics) band-aid Allergy Intermediate Rash Uncoded 11/17/23 13:42 Review of Systems Status of ROS: Reports: 10 or more systems reviewed and unremarkable except as noted in History and below [facility] Medical History Encounter for Medicare annual wellness exam ?Z00.00 - Encounter for general adult medical examination without abnormal findings (ICD-10) Seasonal allergies ?J30.2 - Other seasonal allergic rhinitis (ICD-10) Arthritis ?M19.90 - Unspecified osteoarthritis, unspecified site (ICD-10) Osteoarthritis of neck ?M47.812 - Spondylosis without myelopathy or radiculopathy, cervical region (ICD-10) Back pain ?M54.9 - Dorsalgia, unspecified (ICD-10) Surgical History S/P total left hip arthroplasty (01/09/23) ?Z96.642 - Presence of left artificial hip joint (ICD-10) History of abdominal surgery (1988) ?Z98.890 - Other specified postprocedural states (ICD-10) Hx of tonsillectomy (1961) ?Z90.89 - Acquired absence of other organs (ICD-10) History of appendectomy (1963) ?Z90.49 - Acquired absence of other specified parts of digestive tract (ICD- 10) Family History Father Heart problem High blood pressure Cancer CHF (congestive heart failure) Mother High blood pressure Dementia Maternal Grandfather High blood pressure Stroke Maternal Grandmother High blood pressure Stroke Paternal Grandfather Diabetes High blood pressure Stroke Paternal Grandmother High blood pressure Stroke Brother Hemiplegia DVT (deep venous thrombosis) Brother Prostate cancer Social History Narrative: Lives independently. 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 Her friend and co-worker, Vivien, is here with her today and is of good support. Sunshine is a lifelong nonsmoker. Drinks 2 gin and tonics every 3-4 weeks. Denies recreational drug use. Smoking Status: Never smoker Do you use any of these nicotine containing products: None Second hand tobacco smoke exposure: No How often do you have a drink containing alcohol: monthly or less Alcohol type: wine and hard liquor How many standard drinks containing alcohol do you have on a typical day: 1 or 2 How often do you have six or more drinks on one occasion: Never AUDIT-C Alcohol total score: 1 Non-prescribed substance use: denies use Caffeine: Yes (coffee, 1-2 cups/day) Little interest or pleasure in doing things: not at all Feeling down, depressed, or hopeless: not at all service: No Exam Narrative: Exam Narrative: Const: Well-nourished, Well-developed, in no distress Eyes: PERRL, no conjunctival injection, and symmetrical lids HENT: Atraumatic external nose and ears. Moist mucous membranes. Neck: Symmetric, trachea midline, No thyromegaly. CVS: RRR, No murmurs or gallops. Peripheral pulses 2+ and equal in all extremities RESP: Unlabored respiratory effort. Clear to auscultation bilaterally. GI: Nontender/Nondistended, No rebound or guarding. MSK:Extremities w/o deformity, Normal Active ROM Skin: Warm, Dry. No rashes or lesions. Neuro: Normal Muscle tone, No focal neurological deficits. Psych: Awake, Alert, & Oriented x3. Appropriate mood and affect. Const: Vital Signs, click to edit/add: Vital Signs - 24 hr 11/17/23 15:38 11/17/23 17:47 Temperature 96.5 F L Pulse Rate [Pulse Oximeter] 65 Respiratory Rate 18 Blood Pressure [Le ft Upper Arm] 186/96 H 160/110 H Pulse Oximetry 97 Oxygen Delivery Me thod Room Air Course Vital Signs Vital signs: Initial Vital Signs Temperature 96.5 F L 11/17/23 15:38 Temperature Source Temporal Artery Scan 11/17/23 15:38 Pulse Rate 65 11/17/23 15:38 Respiratory Rate 18 11/17/23 15:38 Blood Pressure 186/96 H 11/17/23 15:38 Blood Pressure Mean 126 H 11/17/23 15:38 Pulse Oximetry 97 11/17/23 15:38 Oxygen Delivery Method Room Air 12/29/23 15:38 Vital Signs Temperature 96.5 F L 11/17/23 15:38 Pulse Rate 65 11/17/23 15:38 Respiratory Rate 18 11/17/23 15:38 Blood Pressure 186/96 H 11/17/23 15:38 Pulse Oximetry 97 11/17/23 15:38 Oxygen Delivery Method Room Air 11/17/23 15:38 Temperature 96.5 F L 11/17/23 15:38 Pulse Rate 65 11/17/23 15:38 Respiratory Rate 18 11/17/23 15:38 Blood Pressure 160/110 H 11/17/23 17:47 Pulse Oximetry 97 11/17/23 15:38 Oxygen Delivery Method Room Air 11/17/23 15:38 Medical Decision Making MDM Narrative Medical decision making narrative: Patient is a 68-year-old female presenting for asymptomatic hypertension. While she was here her blood pressure came down to 160/110. First blood pressure was 186/96. She continues to be asymptomatic throughout her stay. Due to this ACEP guidelines recommends no screening in the ED. she has never had hypertension before and I do not believe is necessary to start her on blood pressure medication. She says her blood pressure was normal last week. She does states she will follow up with the primary care provider tomorrow. She is agreeable with this plan. Discharge Plan Discharge Clinical Impression: Hypertension Qualifiers: Hypertension type: unspecified Qualified Code(s): I10 - Essential (primary) hypertension Patient Disposition: Home, Self-Care Condition: Stable Instructions: Hypertension (ED) Additional Instructions: Follow-up with the primary care provider tomorrow to have your blood pressure recheck and possible be started on blood pressure medicine. [facility] any new or worsening symptoms Prescriptions: No Action fexofenadine 60 mg tablet 180 mg PO Q24H PreserVision AREDS 2 Plus MV 200 mcg-15 mcg- 5 mg-1 mg capsule PO triamcinolone acetonide 0.1 % cream 1 applic topical BID PRN (Reason: rash) Qty: 80 1RF Vitron-C 65 mg iron- 125 mg tablet,delayed release (DR/EC) 1 tab PO QDAY Qty: 90 3RF Follow Up/Referrals: Guicho Rodarte MD [Primary Care Provider] - Stand Alone Forms: [employer] Info Instructions
== END 2023-11-17 17:59 | disposition home or self-care (01) ==
LOC: ED 17:51
PROVIDERS: Emergency Provider Student in an Organized Health Care Education/Training Program; PCP Family Medicine
DX: I10 Essential (primary) hypertension (principal)
CPT/HCPCS: 99282; 99283

== ENCOUNTER 2023-12-01 11:43 | Outpatient (CLI) | payer MEDICARE, SELFPAY ==
--- OUTSIDE RECORDS SUMMARY | 2023-12-01 11:57 | XMS_ITS | Clinical Summary ---
Author Name Unknown Organization [facility] Address [place], [place] [address] Care Team Providers Care Merchandise Planning Manager Name Role Phone Pcp, No Primary Care Provider Unavailabl e Allergies Active Allergy Reactions Criticality Noted Date Comments Diphenhydramine-Acetaminop hen Hives 05/31/2023 Amoxicillin Hives 05/31/2023 Latex Rash Low 05/31/2023 Nsaids (Non-Steroidal Anti-Inflammatory Drug) Hives 05/31/2023 Oxycodone *Unknown High 05/31/2023 Patient states her BP became dangerously low quickly. Medications Medication Sig Dispensed Refills Start Date End Date Status aspirin (ECOTRIN) 81 mg enteric coated tablet TAKE ONE TABLET BY MOUTH TWICE A DAY TO HELP PREVENT BLOOD CLOTS 0 01/09/2023 Active mb-evt-PW-vit N-afaypl-znmvcrn (PreserVision AREDS 2 Plus MV) 200 mcg-15 mcg- 5 mg-1 mg cap Take by mouth. 0 05/31/2023 Ac tive fexofenadine (SHAR) 180 mg tablet Take 180 mg by mouth once daily. Do not crush or chew. 0 05/31/2023 Active multivitamin (MVI) tablet Take 1 Tablet by mouth once daily. 0 05/31/2023 Active Active Problems No known active problems Encounters Date Type Department Care Team Description 10/10/2023 Lab Requisition [facility] [phone] Guicho Rodarte MD 09/08/2023 Telephone [facility] [address] [place] [address] Hilton Leger MD Results (MRI) 09/05/2023 Orders Only [facility] [address] [place] [address] Hilton Leger MD 1 scan: (1-Ord) [facility], LUMBAR SPINE, 08/31/2023 from Last 3 Months Social History Tobacco Use Types Packs/Day Years Used Date Smoking Tobacco: Never Smokeless Tobacco: Never Tobacco Cessation:Counseling Given: Yes Social Connections Answer Date Recorded Frequency of Communication with Friends and Fami ly Not on file 05/31/2023 Sex and Gender Information Value Date Recorded Sex Assigned at Female 04/06/2023 3:38 PM CDT Gender Identity Female 04/06/2023 3:38 PM CDT Sexual Orientation Not on file Obstetrics History Last Filed Vital Signs Vital Sign Reading Time Taken Comments Blood Pressure 144/85 08/25/2023 10:33 AM CDT Pulse 52 08/25/2023 10:33 AM CDT Temperature 36.5 ??C (97.7 ??F) 08/25/2023 10:33 AM C DT Respiratory Rate - - Oxygen Saturation 98% 08/25/2023 10:33 AM CDT Inhaled Oxygen Concentration - - Weight 95.9 kg (211 lb 6.4 oz) 05/31/2023 10:29 AM CDT shoes on Height - - Body Mass Index - - Plan of Treatment Health Maintenance Due Date Last Done Comments Tdap 1967 Depression screening for age 12+ 1968 BMI (ht and wt on same day) for age 18+ 1974 Hepatitis C screening for age 18-79 1974 Tetanus booster 1976 Colonoscopy through age 75 2001 Lipids for age 45-75 2001 Mammogram for age 45-75 2001 Zoster (shingles) series for age 50+ (1 of 2) 11/10/20 06 DEXA/DXA scan for age 65+ 2021 Medicare Wellness for age 65+ 2021 Pneumococcal series for age 65+ (1 of 1 - PCV) 021 COVID-19 vaccine series (2 - season) 3 07/01/2021 Influenza for age 65+ 07/21/2023 Procedures Procedure Name Priority Date/Time Associated Diagnosis Comments LAB TRACKING EVENT Routine 10/10/2023 1: 35 PM [employer] IN[employer]STMENT CA[employer] TOE PUNCHER THIN PREP PAP SCREEN IMAGED Routine 10/10/2023 1:35 PM [employer] HPV THIN PREP Routine 10/10/2023 1:35 PM [employer] MR SPINE LUMBAR WO Routine 08/31/2023 12 :00 AM CDT DDD (degenerative disc disease), lumbar Lumbar radiculopathy Cervical myofascial pain syndrome from Last 3 Months Results * LAB TRACKING EVENT (10/10/2023 1:35 PM [employer]) Other (Other) Client Collect / Unknown 10/10/2023 1:35 PM [employer] 10/10/2023 3:55 PM [employer] Guicho Rodarte MD LAB BILL ONLY [facility] [address] [place] [address], * TOE PUNCHER THIN PREP PAP SCREEN IMAGED (10/10/2023 1:35 PM [employer] CA[employer]ING) Case Report Gynecologic Cytology Report ? Case: [id number] ? Authorizing Provider: ??Guicho Rodarte MD ?Collected: ? 10/10/2023 1335 ? Ordering Location: ? [facility] ?Received: ?10/11/2023 1235 ? First Screen: ?Song, Stacey ? Rescreen: ?Traci Orellana ? Specimen: ?TOE PUNCHER ThinPrep Vial Screening, Cervical ? 10/23/2023 12:16 PM [facility] INTERPRETATION/ RESULT NEGATIVE FOR INTRAEPITHELIAL LESION OR MALIGNANCY (NIL) (none) 10/23/2023 12:16 PM [facility] IMEN ADEQUACY Satisfactory for evaluation Endocervical component present 10/23/2023 12:16 PM [facility] HPV REQUEST HPV and PAP 10/23/2023 12:16 PM [facility] Menstrual Status Postmenopausal 10/23/2023 12:16 PM [facility] Comment:abnormal bleeding [place] Bx Done Today No 10/23/2023 12:16 PM [facility] Additional Information 10/23/2023 12:16 PM [facility] Comment: Interpreted at [facility], Central Laboratory - [address], [place] [address] Automated Review Successful 10/23/2023 12:16 PM [facility] Comment:Specimen processed s uccessfully by automated coding specialist home health device, ThinPrep Imaging System, [employer] ANCILLARY TESTING TOE PUNCHER HPV Ordered, Please see separate report 10/23/2023 12:16 PM [facility] Note The pap test is a screening technique, not a diagnostic procedure. It is used primarily to screen for squamous cancers and precursor lesions. Published studies have shown that it is subject to both false negative and false positive results. The pap test should not be used as the sole means to diagnose or exclude pre-malignant and malignant lesions. 10/23/2023 12:16 PM [employer] [facility] Other (Cervical) 10/10/2023 1:35 PM [employer] 10/11/2023 12:35 PM [employer] Guicho Rodarte MD PATHOLOGY/CYTOLOGY Performing Organization Address [facility] Co de Phone Number [facility] [address] [place] [address], * HPV HIGH RISK (10/10/2023 1:35 PM [employer]) TYPE 16 Negative Negative 10/16/2023 1:47 PM [employer] [facility] TYPE 18 Negative Negative 10/16/2023 1:47 PM [employer] [facility] OTHER HIGH RISK TYPES Negative Negative 10/16/2023 1:47 PM [employer] [facility] Other (Cervical) 10/10/2023 1:35 PM [employer] 10/11/2023 12:35 PM [employer] Narrative [facility] - 10/16/2023 1:47 PM [employer] HPV types 16, 18, 31, 33, 35, 39, 45, 51, 52, 56, 58, 59, 66 and 68 DNA were undetectable or below the pre-set threshold. Methodology: Han Autumn 4800 HPV Test Guicho Rodarte MD MICROBIOLOGY Performing Organization Address [facility] de Phone Number [facility] [address] [place] [address], * MR SPINE LUMBAR WO (08/31/2023 12:00 AM CDT) Anatomical Region Laterality Modality Spine, LUMBAR SPINE Magnetic Res onance Hilton Leger MD MR from Last 3 Months Care Teams Merchandise Planning Manager Relationship Specialty Start Date End Date Pcp, No . PCP - General 05/31/23
--- NOTE | 2023-12-01 12:15 | CRLHL7_ITS ---
For Patients: As a result of the Century Cures Act, medical imaging exams and procedure reports are released immediately into your electronic medical record. You may view this report before your referring provider. If you have questions, please contact your health care provider. INDICATION: Postcoital bleeding TECHNIQUE: Transvaginal scanning was performed to optimally evaluate the endometrium and adnexa. Ovarian blood flow was evaluated with color-flow and pulsed Doppler. COMPARISON: None. FINDINGS: The uterus is normal in size and shape. The uterus measures 6.6 x 1.6 x 3.4 cm. An intramural 1.9 x 1.5 x 1.4 cm posterior body fibroid is demonstrated as well as an intramural 1.0 cm anterior body fibroid. The endometrial stripe is normal in thickness at 3 mm. The right ovary is not visualized. The left ovary is normal, measuring 1.8 x 1.5 x 1.0 cm. Left ovarian blood flow is demonstrated with color-flow and pulsed Doppler. No adnexal mass is evident. No free fluid is demonstrated. IMPRESSION: 1. Normal-thickness endometrial stripe at 3 mm. 2. Intramural uterine fibroids, as above. Dictated by Bruce Villasenor MD @ 12/04/2023 9:03:23 AM (Electronically Signed)
== END 2023-12-01 11:44 | disposition home or self-care (01) ==
LOC: US 11:44
PROVIDERS: PCP Family Medicine; Visit Provider Obstetrics & Gynecology
DX: N93.0 Postcoital and contact bleeding (principal); D25.9 Leiomyoma of uterus, unspecified
CPT/HCPCS: 76830

== ENCOUNTER 2023-12-05 10:00 | Outpatient (RCR) | payer MEDICARE, SELFPAY | END 2023-12-05 13:36 | disposition home or self-care (01) | PROVIDERS: PCP Family Medicine; Visit Provider Family Medicine | DX: M51.36 Other intervertebral disc degeneration, lumbar region (principal); M54.16 Radiculopathy, lumbar region; M79.18 Myalgia, other site; M25.561 Pain in right knee; G89.29 Other chronic pain; M17.0 Bilateral primary osteoarthritis of knee; M25.511 Pain in right shoulder; M25.512 Pain in left shoulder; Z74.09 Other reduced mobility; M54.2 Cervicalgia; M54.89 Other dorsalgia; Z51.89 Encounter for other specified aftercare | CPT/HCPCS: 97110; 97140; 97161 ==

== ENCOUNTER 2023-12-07 10:42 | Outpatient (CLI) | payer MEDICARE, SELFPAY ==
--- OUTSIDE RECORDS SUMMARY | 2023-12-07 10:46 | XMS_ITS | Clinical Summary ---
Author Name Unknown Organization [facility] Address [place], [place] [address] Care Team Providers Care Gas Plumbing Inspector Name Role Phone Pcp, No Primary Care [...] HELP PREVENT BLOOD CLOTS 0 01/09/2023 Active gz-rnf-CR-vit U-qemzfs-ckaoxoa (PreserVision AREDS 2 Plus MV) 200 mcg-15 [...] Department Care Team Description 10/10/2023 Lab Requisition [facility] [phone] Guicho Rodarte MD 09/08/2023 Telephone [facility] [address] [place] [address] Hilton Leger MD Results (MRI) from Last 3 Months Social History Tobacco [...] PCV) 021 COVID-19 vaccine series (2 - 2022- season) 3 07/01/2021 Influenza for age 65+ 07/21/2023 Procedures Procedure Name Priority Date/Time Associated Diagnosis Comments LAB TRACKING EVENT Routine 10/10/2023 1: 35 PM ASSISTANT TO THE VICE PRESIDENT JOURNEYMAN LINEMAN THIN PREP PAP SCREEN IMAGED Routine 10/10/2023 1:35 PM ASSISTANT TO THE VICE PRESIDENT HPV THIN PREP Routine 10/10/2023 1:35 PM ASSISTANT TO THE VICE PRESIDENT from Last 3 Months Results * LAB TRACKING EVENT (10/10/2023 1:35 PM ASSISTANT TO THE VICE PRESIDENT) Other (Other) Client Collect / Unknown 10/10/2023 1:35 PM ASSISTANT TO THE VICE PRESIDENT 10/10/2023 3:55 PM ASSISTANT TO THE VICE PRESIDENT Guicho Rodarte MD LAB BILL ONLY [facility] [address] [place] [address], * JOURNEYMAN LINEMAN THIN PREP PAP SCREEN IMAGED (10/10/2023 1:35 PM ASSISTANT TO THE VICE PRESIDENT) Case Report Gynecologic Cytology Report ? Case: [id number] ? Authorizing Provider: ??Guicho Rodarte MD ?Collected: ? 10/10/2023 1335 ? Ordering Location: ? [facility] ?Received: ?10/11/2023 1235 ? First Screen: ?Song, Stacey ? Rescreen: ?Traci Orellana ? Specimen: ?JOURNEYMAN LINEMAN ThinPrep Vial Screening, Cervical ? 10/23/2023 12:16 PM [facility] INTERPRETATION/ RESULT NEGATIVE FOR INTRAEPITHELIAL LESION OR MALIGNANCY (NIL) (none) 10/23/2023 12:16 PM [facility] IMEN ADEQUACY Satisfactory for evaluation Endocervical component present 10/23/2023 12:16 PM [facility] HPV REQUEST HPV and PAP 10/23/2023 12:16 PM [facility] Menstrual Status Postmenopausal 10/23/2023 12:16 PM [facility] Comment:abnormal bleeding [place] Bx Done Today No 10/23/2023 12:16 PM [facility] Additional Information 10/23/2023 12:16 PM [facility] Comment: Interpreted at [facility], Central Laboratory - [address], [place] [address] Automated Review Successful 10/23/2023 12:16 PM [facility] Comment:Specimen processed s uccessfully by automated capacity manager device, ThinPrep Imaging System, [employer] ANCILLARY TESTING JOURNEYMAN LINEMAN HPV Ordered, Please see separate report 10/23/2023 12:16 PM [facility] Note The pap test is a screening technique, not a diagnostic procedure. It is used primarily to screen for squamous cancers and precursor lesions. Published studies have shown that it is subject to both false negative and false positive results. The pap test should not be used as the sole means to diagnose or exclude pre-malignant and malignant lesions. 10/23/2023 12:16 PM [facility] Other (Cervical) 10/10/2023 1:35 PM ASSISTANT TO THE VICE PRESIDENT 10/11/2023 12:35 PM ASSISTANT TO THE VICE PRESIDENT Guicho Rodarte MD PATHOLOGY/CYTOLOGY Performing Organization Address City/State/[facility] Co de Phone Number [facility] [address] [place] [address], * HPV HIGH RISK (10/10/2023 1:35 PM ASSISTANT TO THE VICE PRESIDENT) TYPE 16 Negative Negative 10/16/2023 1:47 PM ASSISTANT TO THE VICE PRESIDENT [facility] TYPE 18 Negative Negative 10/16/2023 1:47 PM ASSISTANT TO THE VICE PRESIDENT [facility] OTHER HIGH RISK TYPES Negative Negative 10/16/2023 1:47 PM ASSISTANT TO THE VICE PRESIDENT [facility] Other (Cervical) 10/10/2023 1:35 PM ASSISTANT TO THE VICE PRESIDENT 10/11/2023 12:35 PM ASSISTANT TO THE VICE PRESIDENT Narrative [facility] - 10/16/2023 1:47 PM ASSISTANT TO THE VICE PRESIDENT HPV types 16, 18, 31, 33, 35, 39, 45, 51, 52, 56, 58, 59, 66 and 68 DNA were undetectable or below the pre-set threshold. Methodology: Han Autumn 4800 HPV Test Guicho Rodarte MD MICROBIOLOGY Performing Organization Address [facility] Co de Phone Number [facility] [address] [place] [address], from Last 3 Months Care Teams Gas Plumbing Inspector Relationship Specialty Start Date End Date Pcp, No . PCP - General 05/31/23
--- NOTE | 2023-12-07 11:00 | CRLHL7_ITS ---
For Patients: As a result of the Century Cures Act, medical imaging exams and procedure reports are released immediately into your electronic medical record. You may view this report before your referring provider. If you have questions, please contact your health care provider. INDICATION: Edema COMPARISON: none TECHNIQUE: A compression venous ultrasound exam was performed of both lower extremities using garcia scale imaging, color Doppler and spectral Doppler analysis. FINDINGS: Sonographic imaging of the lower extremities demonstrates normal compressibility and color Doppler venous blood flow within the common femoral, deep femoral, and proximal greater saphenous veins. Within the thighs the femoral veins are patent and compressible. At a lower level the popliteal and posterior tibial veins also show normal compressibility and color Doppler venous blood flow. IMPRESSION: Normal venous ultrasound exam. No evidence of deep vein thrombosis within either the left or right lower extremity. Dictated by Matias Villanueva MD @ 12/07/2023 11:35:36 AM (Electronically Signed)
== END 2023-12-07 10:43 | disposition home or self-care (01) ==
LOC: US 10:44
PROVIDERS: PCP Family Medicine; Visit Provider Family Medicine
DX: R60.9 Edema, unspecified (principal)
CPT/HCPCS: 93970

== ENCOUNTER 2024-04-12 16:55 | Outpatient (CLI) | payer MEDICARE, SELFPAY ==
--- OUTSIDE RECORDS SUMMARY | 2024-05-06 15:33 | XMS_ITS | Clinical Summary ---
Author Organization [facility] Address [place], [place] [address] Care Team Providers Care Quality Eng Name Role Phone Pcp, No Primary Care [...] TO HELP PREVENT BLOOD CLOTS 01/09/2023 Active vt-jrj-NL-vit J-kbisxf-uzevbmh (PreserVision AREDS 2 Plus MV) 200 mcg-15 [...] Influenza for age 65+ 07/21/2024 Care Teams Quality Eng Relationship Specialty Start Date End Date Pcp, No . PCP - General 05/31/23
== END 2024-04-12 16:56 | disposition home or self-care (01) ==
LOC: NFLDREF 05-06 15:31
PROVIDERS: PCP Family Medicine; Referring Provider Family Medicine; Visit Provider Physician Assistant
DX: N39.0 Urinary tract infection, site not specified (principal)
CPT/HCPCS: 87086; 87186

== ENCOUNTER 2024-04-29 06:01 | Day surgery (SDC) | payer MEDICARE, SELFPAY ==
[2024-04-29] VITALS (17 sets, daily range): BP systolic 89–148; BP diastolic 46–97; PULSE 44–80; RESP 12–16; TEMP 36.1–36.4; O2SAT 94–99; BMI 34.0
--- OUTSIDE RECORDS SUMMARY | 2024-04-29 06:04 | XMS_ITS | Clinical Summary ---
Author Organization [facility] Address [place], [place] [address] Care Team Providers Care Cell Stripper Final Name Role Phone Pcp, No Primary Care [...] A DAY TO HELP PREVENT BLOOD CLOTS 01/09/2023 Active uv-ccf-RB-vit Q-umfmlv-mlkbcou (PreserVision AREDS 2 Plus MV) 200 mcg-15 mcg- 5 mg-1 mg cap Take by mouth. 0 05/31/2023 Ac tive fexofenadine (SHAR) 180 mg tablet Take 180 mg by mouth once daily. Do not crush or chew. 0 05/31/2023 Active multivitamin (MVI) tablet Take 1 Tablet by mouth once daily. 0 05/31/2023 Active Active Problems No known active problems Social History Tobacco Use Types Packs/Day Years [...] season) 3 07/01/2021 Influenza for age 65+ 07/21/2024 Care Teams Cell Stripper Final Relationship Specialty Start Date End Date Pcp, No . PCP - General 05/31/23
[2024-04-29] MEDS: SODIUM CHLORIDE 0.9 % (FLUSH) 10 ML SYRINGE IVF (06:28)
[2024-04-29] MEDS: LACTATED RINGERS 1000 ML 1,000 ML 100 ML IV ×2 (06:28→10:45)
--- NOTE | 2024-04-29 07:05 | W.PM.H&PU ---
History & Physical Update History & Physical Update H&P Reviewed and patient assessed: No changes noted
[2024-04-29] MEDS: fentaNYL 100 MCG/2 ML inj IVP (07:10)
[2024-04-29] MEDS: MIDAZOLAM HCL 1 MG/ML inj IVP (07:10)
--- NOTE | 2024-04-29 07:20 | SUR.PREOP ---
TIME?OUT:?0710 PT/RN/MDA?VERIFICATION?OF?SURGICAL?SITE,?PROCEDURE,?AND?CONSENT OBTAINED?PRIOR?TO?INVASIVE?PROCEDURE.
[2024-04-29] MEDS: CEFAZOLIN 2 GM in 0.9 % SODIUM CHLORIDE Mini-bag 100 ML IVPB (07:28)
[2024-04-29] MEDS: TRANEXAMIC ACID 100 MG/ML INJ 1000 MG IV (07:39)
--- NOTE | 2024-04-29 08:50 | P.ORPRC_ITS ---
Procedure Note Date of procedure: 04/29/24 Procedure: PREOPERATIVE DIAGNOSIS: 1. Right knee osteoarthritis, primary, severe POSTOPERATIVE DIAGNOSIS: 1. Right knee osteoarthritis, primary, severe PROCEDURE: 1. Right total knee arthroplasty - subvastus SURGEON: Sunny Craven MD. SECURITY FIELD SUPERVISOR: Elias Galvez PA-C - Of note, a skilled boilermaker's assistant was critical for this case to aid in patient positioning, tissue retraction, limb manipulation/positioning, and closure. ANESTHESIA: Spinal anesthetic IMPLANTS: DePuy J&J all cemented TKA - Attune PS femur size 7, size 6 tibia, 5 poly spacer, 38 mm patella TOURNIQUET: 90 min at 300 torr EBL: 50 ml COMPLICATIONS: None evident INDICATIONS: The patient is a pleasant 68-year-old female who has experienced severe right knee pain and difficulty bearing weight. Workup included x-rays w [facility] revealed severe osteoarthrosis in the knee. Given the deformity, the dysfunction, and the pain, as well as the failure of nonoperative management, recommendation was made for surgery. FINDINGS: Full-thickness chondral loss diffusely throughout the medial compartment with erosion into the femur and tibia. Significant patellofemoral chondromalacia as well. Moderate tricompartmental osteophytes. DESCRIPTION OF PROCEDURE: Following a thorough discussion of risks, benefits, and alternatives consent was obtained and the right knee was marked. The patient was brought to the operating room and placed supine on the operating table. Induction of anesthesia was undertaken. 2 g IV Ancef and 1 g tranexamic acid was administered within 1 hr of incision preoperatively. Proper time-out was performed identifying proper patient, site, procedure. The operative extremity was prepped and draped in the appropriate sterile fashion using ChloraPrep after the patient was positioned supine with all bony prominences well padded. A longitudinal, anterior, midline skin incision was made starting approximately 3cm proximal to the superior pole of the patella and advanced distal to the tibial tubercle. A subvastus approach was utilized. A medial subperiosteal sleeve was created with knife, sams elevator and curved osteotome. The retropatellar fatpad was resected and the synovium in the suprapatellar pouch excised to visualize the anterior femoral cortex. Femoral preparation was performed via an intramedullary guide. Step drill allowed access into the femoral canal. The distal cutting guide was placed with 5? of valgus and 10 mm cut on the distal femur. Femur was sized using a posterior referencing guide in 3? of external rotation. This found have a best fit with the sizing noted above. The 4 in 1 cutting block was then placed, and the distal femur shaped accordingly. The box cut was then created and the trial implant inserted to confirm appropriate fit. We turned our attention to the proximal tibia. Extramedullary guide was utilized for cutting with the goal of being 90 degree cut from the mechanical axis of the tibia in the varus/valgus plane utilizing tibial crest as the primary alignment. Initially a 2 mm resection was performed from the medial tibial plateau. Ultimately, balancing was achieved in both flexion and extension in both varus and valgus. The knee was able to achieve full extension as well comfortably. The patella was initially measured and found have a thickness of 25 mm. It was resected back to approximately 14.5 mm. It was sized to be a best fit with as noted above. This was drilled, trial placed. All trials were placed and found to have an excellent stability and balance. At this stage, trial implants were removed, the knee was thoroughly irrigated with normal saline, and the cement was mixed. After irrigation, the knee was thoroughly dried, and cement placed, with the real tibial and femoral implants placed along with the patella. Trial poly spacer was placed and confirmed to have excellent range of motion and full extension, and the real poly spacer opened and inserted. All extra cement was removed, and a 3 min Betadine soak performed. Finally, a final irrigation round with normal saline was performed. Closure performed with 0 Vicryl and #0 Stratafix for the quad tendon/retinaculum. 2-0 Vicryl for the subcutaneous and 4-0 Stratafix for subcuticular closure. Dressings were applied and the patient was awoken from anesthesia after the tourniquet deflated and transferred the PACU in stable condition. A skilled boilermaker's assistant was critical for this case to aid in patient positioning, tissue retraction, bone exposure, limb manipulation/positioning, patient safety, and closure. PLAN: 1. Weight bear as tolerated operative extremity. 2. Ice. 3. Analgesics p.r.n.. 4. PT consults for ambulation assistance/mobility education. 5. DVT prophylaxis with at SCDs and aspirin twice daily.
--- NOTE | 2024-04-29 09:49 | W.ANESCHARGE ---
Anesthesia Charges Start Date/Time Anesthesia Start Date: 04/29/24 Anesthesia Start Time: 07:20 Stop Date/Time Anesthesia Stop Date: 04/29/24 Anesthesia Stop Time: 09:47
--- NOTE | 2024-04-29 09:54 | CRLHL7_ITS ---
For Patients: As a result of the Cures Act, medical imaging exams and procedure reports are released immediately into your electronic medical record. You may view this report before your referring provider. If you have questions, please contact your health care provider. Indication: Postop Technique: Two views right knee Findings/Impression: Hardware from a right total knee arthroplasty is in satisfactory position. Bone alignment is normal. No sign of acute fracture. Postop changes are within normal limits. Dictated by Matias Villanueva MD @ 04/29/2024 10:55:58 AM (Electronically Signed)
--- NOTE | 2024-04-29 11:01 | P.NB_ITS ---
Nerve Block Nerve Block Time Seen by Provider: 07:14 Date Seen: 04/29/24 Type of block requested by surgeon for post-operative analgesia: adductor canal Side: right Time out performed: Yes Verification of patient name: Yes Verification of date of : Yes Site marking: site marked Name of person performing procedure: Julius Continuous monitoring Was continuous monitoring of O2 sat, B/P, sprayer automatic spray machine, recorded every 15 minutes?: Yes Procedure Checklist: sterile prep, needles and gloves Ultrasound guided. Images saved: Yes Medications given in 5ml increments after negative aspiration: Ropivicaine %: 0.5 mL: 20 Needle gauge: 20 Decadron (mg): 10 Precedex (mcg): 25 Patient tolerated procedure well: Yes Additional comments: Needle noted adjacent to nerve Block Charges Block Charge (with Pro Fee): Femoral Nerve Use of Ultrasound Machine for Block: Yes- US Guidance/pain block
--- NOTE | 2024-04-29 11:01 | W.PM.NB ---
Nerve Block Nerve Block Time Seen by Provider: 07:14 Date Seen: 04/29/24 Type of block requested by surgeon for post-operative analgesia: geniculars Side: right Time out performed: Yes Verification of patient name: Yes Verification of date of : Yes Site marking: site marked Name of person performing procedure: Julius Continuous monitoring Was continuous monitoring of O2 sat, B/P, communications professional, recorded every 15 minutes?: Yes Procedure Checklist: sterile prep, needles and gloves Medications given in 5ml increments after negative aspiration: Ropivicaine %: 0.5 mL: 9 Needle gauge: 25 Patient tolerated procedure well: Yes Block Charges Block Charge (with Pro Fee): Genicular Nerve Block Use of Ultrasound Machine for Block: No
--- NOTE | 2024-04-29 11:02 | W.ANESCHARGE ---
Anesthesia Charges Start Date/Time Anesthesia Start Date: 04/29/24 Anesthesia Start Time: 07:20 Stop Date/Time Anesthesia Stop Date: 04/29/24 Anesthesia Stop Time: 09:47
== END 2024-04-29 14:15 | disposition home or self-care (01) ==
LOC: OR 06:03
PROVIDERS: PCP Family Medicine; Visit Provider Orthopaedic Surgery Sports Medicine
PROC: (CPT 27447; principal; 2024-04-29 07:15)
DX: M17.11 Unilateral primary osteoarthritis, right knee (principal); G89.18 Other acute postprocedural pain
CPT/HCPCS: 27447; 01402; 64447; 64454; 73560; 76942; 97110; 97116; 97161; C1776; J0690; J1100; J2250; J2371; J2405; J2704; J2795; J3010; J7120

== ENCOUNTER 2024-07-31 12:00 | Outpatient (RCR) | payer MEDICARE, SELFPAY ==
--- NOTE | 2024-04-23 11:33 | PT.OPE ---
PT [facility]an Outpatient Eval PT [facility] Outpatient Eval Start: 01/15/24 15:30 Freq: Status: Active Protocol: Document 04/22/24 11:16 LOVELY (Rec: 04/22/24 11:58 LOVELY [id number]) E-signed By Stephane Doshi, PT, ATC Physical Therapy Outpatient Evaluation Insurance Information Insurance Name Medicare B Insurance Information/Comments U Care Medical Diagnosis M17.11 Unilateral primary osteoarthritis, right knee Treating Diagnosis R knee pain R knee stiffness Compensated ADL's Referring MD Gurmeet Corley Subjective Emilie is scheduled for a R TKA on 04/29/24. She has experienced a year of progressively worsening R knee pain and stiffness. Attempts at strength and conditioning did not make any change with symptoms. Experiencing difficulty with walking, stairs, squatting and kneeling . Enjoys gardening and landscaping but unable to perform these secondary to knee complications. Also having extreme back pain/ stiffness over the past six months. Hoping the adjustment in leg alignment and length will help to diminish this as well. PMHx includes a L CLAUDIA (Dec 2022) which had an excellent outcome. 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 Ends for this school year at the end of the week. Preferred Name Emilie Precautions Treatment Precautions/Contraindications None Weight Bearing Status Full Weight Bearing Therapy Limitations/Systems Review Not Limited Objective Range of Motion R 3-127 L 0-132 Strength R knee extension 4+/5, limited by pain Palpation Tender along anteromedial joint line of R knee Balance & Gait Walks with a slight extension deficit on the R. Posture Stands with more weight through uninvolved LE. Sensation/Reflexes Normal and symetric Assessment Assessment/Impression Emilie is a very pleasant 68 year old woman scheduled for a R knee TKA due to severe OA. She is well known in PT from previous care following her L CLAUDIA, lower back pain and some neck and shoulder difficulty. She is a very capable, strong and independent woman who should do very well following the procedure. She does have some assistance planned for the first 1-2 weeks to assist with recovery. Because she lives in an apartment with an elevator, she does not plan to have any stairs as a challenge initially in her recovery. Following the procedure, skilled PT is strongly recommended to address her R knee pain, ROM and strength deficits and assist with return to walking and all ADL performance. Primary Functional Limitations Extended standing Walking Stairs-bus Squatting Kneeling Sleeping Plan of Care Rehabilitation Potential Excellent Rehabilitation Potential Comments Emilie has always been very hard working and dedicated to her recovery during other rehabilitation episodes. She will do well with this recovery as well. Physical Therapy Goals Pre-op 1.To understand surgical day and recovery process following procedure. 2.To demonstrate independence with post-op TKA ex.s 3.To demonstrate correct use of crutches with walking and stairs 4.To understand best practice for bed and car transfers while protecting and limiting motion in R knee. Coordination/Communication With Referral Source Treatment Plan/Direct Interventions Ice/Cold/Vasopneumatic,Joint Mobilization,Manual Therapy, Neuromuscular Re-ed,Self-Care/ Home Management,Therapeutic Activities,Therapeutic Exercises Frequency/Duration 1-2x per week 12-20 weeks Patient Will Be Discharged From Therapy Independent w/HEP, Independently Progressing Evaluation Billing Untimed Code Treatment Minutes 30 PT Eval No Charge No Complexity Low Certification Information Initial Certification Date 04/22/24 Ending Certification Date 07/23/24 Provider Signature Required Yes Provider Signature Shows Agreement With POC & Medical Necessity Physician NPI Number Write NPI# Here Physician Comment/Change : Physician Signature & Date Requested Please Sign/Date Here
--- NOTE | 2024-06-10 12:07 | PT.OPDN ---
PT Rajna Outpatient Daily Note PT [facility] Outpatient Daily Note Start: 01/15/24 15:30 Freq: Status: Active Protocol: Document 06/10/24 11:00 CJT (Rec: 06/10/24 12:07 CJT [id number]) E-signed By Weston Joyce, PT PT OP Daily Progress Note Visit Information Note Type Daily Note Visit Number [id number] Insurance Authorized Visits tbd Physician Authorized Visits eval and treat Insurance Information Recert Due Date 07/23/24 Insurance Name Medicare B Insurance Information/Comments U Care Medical Diagnosis M17.11 Unilateral primary osteoarthritis, right knee R TKA DOS 04/29 Treating Diagnosis R knee pain R knee stiffness Compensated ADL's Referring MD Levi Subjective Preferred Name Emilie Subjective Pain at medial knee has been most bothersome. Has been doing a lot of self-STM to knee and scar tissue and feels this has been helpful. Date of Surgery (If applicable) 04/29/24 Precautions Treatment Precautions/Contraindications None Weight Bearing Status Full Weight Bearing Objective Other/Pertinent Objective R knee AROM: 0-2-123 Patient Instructed in Risks/Benefits Yes Therapeutic Exercise Therapeutic Exercise Minutes (minutes) 45 Therapeutic Exercise: To Restore Bike - seat 7->5, 8 minutes Functional Status Leg press 30# x 12, 90# 3 x 8 Ham curls 30# 3 x 10 6 lateral step-down 3 x 12/10 /8 ea TKE on slant board 2 x 20, light resistance on 2nd set Gastroc stretch on slant board x 60 Squats with chair touch 3 x 10 Arm bar stretch 2 x 60 Knee extension stretch x 60 Manual Therapy Techniques Manual Therapy Minutes (minutes) 10 Manual Therapy Techniques CFM to scar tissue to diminish adhesions. STM/MFR to R anterior knee, quad, gastroc, soleus, and adductor bundle to reduce tissue tension and improve extensibility. Treatment Minutes Timed Code Treatment Minutes 55 Total Treatment Time 55 Billing Units Manual Therapy Units 1 Therapeutic Exercise Units 3 Assessment/Impression Assessment/Impression Emilie is progressing exceptionally well in her first 6 weeks post-op. Her R knee AROM measures 0-2-123 this date following stretching . Her functional strength is improving quickly. Pt ia ambulating wihtout AD and minimal gait deviations as well. Her knee is still quite stiff after sitting for short periods which is to be expected. Recommend continued PT service to address deficits and return pt to highest level of function. Plan of Care Physical Therapy Goals Post op: 1.Daily performance with HEP for ROM and LE strengthening, advances per phase of recovery . 2.Independent R SLR without quad lag x 10 rep.s 6 weeks 3.Ambulate in absence of walker using cane x 1,000 feet permitting her to shop for groceries x 4 weeks 4.R knee PROM 0-135 degrees x 16 weeks 5.Reciprocal stair ascent and descent x 10 Daily Plan of Care Continue per POC
== END 2024-11-28 23:59 | disposition home or self-care (01) ==
PROVIDERS: PCP Family Medicine; Visit Provider Orthopaedic Surgery Sports Medicine
DX: M17.0 Bilateral primary osteoarthritis of knee (principal); Z96.651 Presence of right artificial knee joint; M25.561 Pain in right knee; M25.661 Stiffness of right knee, not elsewhere classified; Z51.89 Encounter for other specified aftercare
CPT/HCPCS: 87086; 97032; 97110; 97116; 97140; 97161; 97164; 97530

== ENCOUNTER 2024-12-02 11:40 | Outpatient (CLI) | payer MEDICARE, SELFPAY | END 2024-12-02 11:41 | disposition home or self-care (01) | LOC: NFLDREF 12-09 04:31 | PROVIDERS: PCP Family Medicine; Referring Provider Family Medicine; Visit Provider Family Medicine | DX: I10 Essential (primary) hypertension (principal); Z13.220 Encounter for screening for lipoid disorders | CPT/HCPCS: 80048; 80061 ==

== ENCOUNTER 2024-12-17 07:26 | Outpatient (CLI) | payer MEDICARE, SELFPAY | END 2024-12-17 07:27 | disposition home or self-care (01) | LOC: INJ CL 07:26 | PROVIDERS: PCP Family Medicine; Visit Provider Family Medicine | DX: M54.16 Radiculopathy, lumbar region (principal); M51.369 Other intervertebral disc degeneration, lumbar region without mention of lumbar back pain or lower extremity pain | CPT/HCPCS: 62323; J0702; Q9966 ==

== ENCOUNTER 2025-04-17 14:37 | Outpatient (CLI) | payer MEDICARE, SELFPAY | END 2025-04-17 14:38 | disposition home or self-care (01) | LOC: CT 14:38 | PROVIDERS: PCP Family Medicine; Visit Provider Orthopaedic Surgery Sports Medicine | DX: M19.011 Primary osteoarthritis, right shoulder (principal); M75.111 Incomplete rotator cuff tear or rupture of right shoulder, not specified as traumatic | CPT/HCPCS: 73200 ==

== ENCOUNTER 2025-04-30 15:31 | Outpatient (CLI) | payer MEDICARE, SELFPAY | END 2025-04-30 15:32 | disposition home or self-care (01) | LOC: LKVREF 15:32 | PROVIDERS: PCP Family Medicine; Visit Provider Emergency Medicine | DX: I10 Essential (primary) hypertension (principal) | CPT/HCPCS: 80048 ==

== ENCOUNTER 2025-05-09 06:02 | Day surgery (SDC) | payer MEDICARE, SELFPAY ==
[2025-05-09] VITALS (17 sets, daily range): BP systolic 113–136; BP diastolic 65–81; PULSE 59–77; RESP 14–16; TEMP 36–36.8; O2SAT 86–97; BMI 35.8
--- NOTE | 2025-05-09 06:51 | W.PM.H&PU ---
History & Physical Update History & Physical Update H&P Reviewed and patient assessed: No changes noted
[2025-05-09] MEDS: LACTATED RINGERS 1000 ML 1,000 ML 100 ML IV (07:00)
[2025-05-09] MEDS: fentaNYL 100 MCG/2 ML inj IVP (07:19)
[2025-05-09] MEDS: MIDAZOLAM HCL 1 MG/ML inj IVP (07:19)
--- NOTE | 2025-05-09 07:33 | SUR.PREOP ---
TIME?OUT:?0718 PT/RN/MDA?VERIFICATION?OF?SURGICAL?SITE,?PROCEDURE,?AND?CONSENT OBTAINED?PRIOR?TO?INVASIVE?PROCEDURE. all in agreement
[2025-05-09] MEDS: CEFAZOLIN 1 GM inj IVP (07:48)
[2025-05-09] MEDS: TRANEXAMIC ACID 100 MG/ML INJ 1000 MG IV (07:53)
--- NOTE | 2025-05-09 08:16 | SUR.OPER ---
PATIENT QUESTIONS ANSWERED SATISFACTORILY PREOPERATIVELY. PATIENT BROUGHT TO OR #4 PER CART FOLLOWING THE BLOCK. Patient positioned supine on OR #4 bed for the intubation.? Perioperative team wrapped the?left arm in a neutral position on the pt. abdomen with the drawsheet in a padded/neutral position.? Right arm elevated on an IV pole in a padded strap. Final approval of positioning by surgeon.
--- NOTE | 2025-05-09 08:50 | P.NB_ITS ---
Nerve Block Nerve Block Time Seen by Provider: 07:15 Date Seen: 05/21/25 Type of block requested by surgeon for post-operative analgesia: supraclavicular Side: right Time out performed: Yes Verification of patient name: Yes Verification of date of : Yes Site marking: site marked Name of person performing procedure: Julius Continuous monitoring Was continuous monitoring of O2 sat, B/P, monitor car operator, recorded every 15 minutes?: Yes Procedure Checklist: sterile prep, needles and gloves Ultrasound guided. Images saved: Yes Medications given in 5ml increments after negative aspiration: Marcaine %: 0.25 mL: 5 Needle gauge: 22 and Exparel mL: 10 Patient tolerated procedure well: Yes Block Charges Block Charge (with Pro Fee): Brachial Plexus Use of Ultrasound Machine for Block: Yes- US Guidance/pain block
--- NOTE | 2025-05-09 09:49 | CRLHL7_ITS ---
For Patients: As a result of the Cures Act, medical imaging exams and procedure reports are released immediately into your electronic medical record. You may view this report before your referring provider. If you have questions, please contact your health care provider. Indication: Postop Technique: Two views right shoulder Findings/Impression: Hardware from a right total shoulder arthroplasty is in satisfactory position. Bone alignment is normal. No sign of acute fracture. Postop changes are within normal limits. Dictated by Matias Villanueva MD @ 05/09/2025 11:21:04 AM (Electronically Signed)
--- NOTE | 2025-05-09 09:53 | P.ANES_ITS ---
Anesthesia Charges Start Date/Time Anesthesia Start Date: 05/09/25 Anesthesia Start Time: 07:23 Stop Date/Time Anesthesia Stop Date: 05/09/25 Anesthesia Stop Time: 09:48 Coding CPT Codes CPT Codes: ANESTH SHOULDER REPLACEMENT - 72445 ([id number]) P2 - PATIENT W/MILD SYST DISEASE, QK - DISPATCHER CHIEF OIL 2-4 CNCRNT ANES PROC, QX - BUSINESS SERVICES SALES REPRESENTATIVE SVC W/ MD MED DIRECTION
--- NOTE | 2025-05-09 09:53 | W.ANESCHARGE ---
Anesthesia Charges Start Date/Time Anesthesia Start Date: 05/09/25 Anesthesia Start Time: 07:23 Stop Date/Time Anesthesia Stop Date: 05/09/25 Anesthesia Stop Time: 09:48 Coding CPT Codes CPT Codes: ANESTH SHOULDER REPLACEMENT - 58654 ([id number]) P2 - PATIENT W/MILD SYST DISEASE, QK - PATHOLOGIST 2-4 CNCRNT ANES PROC, QX - NERVE SPECIALIST SVC W/ MD MED DIRECTION
--- NOTE | 2025-05-09 10:06 | P.ANES_ITS ---
Anesthesia Charges Start Date/Time Anesthesia Start Date: 05/09/25 Anesthesia Start Time: 07:23 Stop Date/Time Anesthesia Stop Date: 05/09/25 Anesthesia Stop Time: 09:48 Coding CPT Codes CPT Codes: ANESTH SHOULDER REPLACEMENT - 44080 ([id number]) QK - MAINTENANCE MECHANIC MILLWRIGHT 2-4 CNCRNT ANES PROC, QX - FRUIT COORDINATOR SVC W/ MD MED DIRECTION, P2 - PATIENT W/MILD SYST DISEASE
--- NOTE | 2025-05-09 10:06 | W.ANESCHARGE ---
Anesthesia Charges Start Date/Time Anesthesia Start Date: 05/09/25 Anesthesia Start Time: 07:23 Stop Date/Time Anesthesia Stop Date: 05/09/25 Anesthesia Stop Time: 09:48 Coding CPT Codes CPT Codes: ANESTH SHOULDER REPLACEMENT - 07869 ([id number]) QK - BISQUE BRUSHER 2-4 CNCRNT ANES PROC, QX - SANDING SUPERVISOR SVC W/ MD MED DIRECTION, P2 - PATIENT W/MILD SYST DISEASE
[2025-05-09] MEDS: LACTATED RINGERS 1000 ML 1,000 ML 30 ML IV (11:15)
--- NOTE | 2025-05-09 12:01 | P.ORPRC_ITS ---
Procedure Note Date of procedure: 05/09/25 Procedure: PREOPERATIVE DIAGNOSIS: 1. Right shoulder osteoarthrosis, primary, severe POSTOPERATIVE DIAGNOSIS: 1. Right shoulder osteoarthrosis, primary, severe with fair to poor cuff tissue quality 2. Right long head of the biceps tendinopathy and tenosynovitis PROCEDURE: 1. Right reverse shoulder arthroplasty. 2. Right long head of biceps open tenodesis SURGEON: Sunny Craven MD. RIGGING MAN: Dex AC - Of note, a skilled assistant teaching professor was critical for this case to aid in patient positioning, tissue retraction, limb manipulation/positioning, retraction for glenoid exposure, which was challenging, awareness and protection of critical structures, and closure. ANESTHESIA: General plus supraclavicular block EBL: 150 ml IMPLANTS: DJ0 surgical Altivate humeral stem size 10 small shell, short with P2 porous coating vitamin E neutral poly small socket insert RSP glenoid base plate P2 porous coating with 4 perimeter locking screws 32 neutral glenosphere with retaining screw COMPLICATIONS: None evident INDICATIONS: The patient is a pleasant 69-year-old female who has experienced severe right shoulder pain and difficulty with use. Workup included imaging which revealed severe osteoarthrosis along with concern for rotator cuff quality. Physical exam was consistent with associated pain. Given the deformity, the dysfunction, and the pain, and failure of nonoperative management, recommendation was made for surgery. DESCRIPTION OF PROCEDURE: Following a thorough discussion of risks, benefits, and alternatives, consent was obtained and the left shoulder was marked. The patient was brought to the operating room and placed supine on the operating table. Induction of anesthesia was undertaken. 2 g IV Ancef and 1 g tranexamic acid was administered within 1 hr of incision preoperatively. Appropriate time- out was performed identifying proper patient, site, and procedure. The operative extremity was prepped and draped in the appropriate sterile fashion using ChloraPrep after the patient was positioned in the lazy beach chair position with head in neutral alignment and all bony prominences well padded. A longitudinal incision was made for deltopectoral approach. Deltoid was retracted laterally. Cephalic vein was identified and retracted laterally as well. Vein was spared/protected throughout the case. The clavipectoral fascia was identified and divided longitudinally staying lateral to the conjoined tendon / coracoid. The conjoined tendon was protected with a blunt Hohmann. The long head of the biceps tendon was identified and the bicipital sheath released. The upper 1/4 of the pectoralis major was also released from its insertion. The long head of the biceps was tenodesed to the pectoralis major tendon due to it being significantly flattened, thickened, with abundant tenosynovitis.. The remaining proximal tendon tissue was excised.] The rotator cuff was inspected and found to have good integrity with the subscapularis but fair integrity with a supraspinatus], and a decision for a reverse shoulder arthroplasty was confirmed. A subscapularis cuff of tissue was left via tenotomy for later repair with the remaining subscapularis released in a subperiosteal fashion with the Bovie. This was tagged for later repair. The 3 sisters were cauterized. The upper subscapularis was released from the capsule with a curved Longo scissors towards the glenoid. The inferior subscapularis was divided from the capsular tissue on its caudal surface with particular caution for the axillary nerve. This was palpated anterior to the subscapularis both prior to and near the finish of the case. Inferior humeral head osteophytes were excised with caution taken throughout the case with regards to the axillary nerve. The humerus was dislocated, and humeral head cut completed. Then a protector plate was applied. We turned our attention to the glenoid. The humerus was retracted posteriorly. The subscap was protected anteriorly and the labrum/long head biceps origin was excised circumferentially. The capsule was released along the anterior and inferior portions of the glenoid cautiously with a Williamson elevator being careful not to penetrate deep. The glenoid had appro priate exposure, and was prepared with the cannulated system with a target of approximately 5-10? of inferior tilt and neutral anteversion (patient had 7? of retroversion initially). Utilizing the match Point 3D printed guide, the guide pin was placed. The 3D printed jig removed and after placing the guide pin, the tap was placed followed by the glenoid reaming. The real base plate was opened, and inserted, and excellent compression/purchase was achieved with the central screw. Peripheral screws were then drilled, measured, and placed. The glenosphere was then placed consistent with the preoperative plan utilizing the above noted glenosphere. After securing the glenosphere with the locking, torque limited screw, attention was turned back to the humerus. A canal finder was placed followed by various reamers by hand. The real humeral stem was then opened and inserted with excellent metaphyseal fit and stability. Trial poly was placed and the shoulder reduced. Excellent reduction and stability achieved with appropriate tension on the conjoined tendon. At this stage, trial implants were removed, and the real implants inserted and the shoulder reduced. A 3 minute Betadine soak was performed followed by a thorough irrigation with normal saline. Subscapularis was repaired with #1 PDS to the cuff of tissue on the lesser tuberosity. Excellent reapproximation of tissue ac hieved. Hemostasis was found to be appropriate. The deltopectoral interval was reapproximated with 0 Vicryl, subcutaneous and subcuticular closure was then performed with number 2-0 Vicryl and 4-0 Monocryl, respectively. A skilled assistant teaching professor was critical for this case to aid in patient positioning, tissue retraction, limb manipulation/positioning, retraction for glenoid exposure, which was challenging, awareness and protection of critical structures, and closure. PLAN: 1. Sling at all times for the operative upper extremity. 2. AROM of elbow, forearm, wrist, and digits as tolerated. 3. OT consults for education and assistance. 4. 23 hr perioperative antibiotics. 5. Early ambulation, and SCDs for DVT prophylaxis. 6. Analgesics p.r.n.
--- NOTE | 2025-05-09 12:59 | SUR.PHASEII ---
OT here to see patient
--- NOTE | 2025-05-09 12:59 | SUR.PHASEII ---
Pt up to bathroom with SBA. Tolerated without difficulty. Reviewed D/c instructions with pt- all questions answered. Pt tolerated water and applesauce. pt reports pain tolerable- soreness, declines pain medication. Sitting in chair.
== END 2025-05-09 13:50 | disposition home or self-care (01) ==
LOC: OR 06:05
PROVIDERS: PCP Family Medicine; Visit Provider Orthopaedic Surgery Sports Medicine
PROC: 0RRJ0JZ Replacement of Right Shoulder Joint with Synthetic Substitute, Open Approach (ICD-10-PCS; CPT 23472; principal; 2025-05-09 07:15)
DX: M19.011 Primary osteoarthritis, right shoulder (principal); M75.21 Bicipital tendinitis, right shoulder; G89.18 Other acute postprocedural pain
CPT/HCPCS: 23472; 23430; 01638; 64415; 73030; 76942; 97110; 97165; 97535; C1713; C1776; J0330; J0665; J0666; J0690; J1100; J2250; J2405; J2704; J3010; J7120; L3670

== ENCOUNTER 2025-08-06 16:45 | Outpatient (RCR) | payer MEDICARE, SELFPAY ==
--- NOTE | 2025-05-26 12:36 | PT.OPDN ---
PT [facility] Outpatient Daily Note PT PATY Outpatient Daily Note Start: 03/13/25 11:42 Freq: Status: Active Protocol: Document 05/26/25 10:14 LOVELY (Rec: 05/26/25 11:14 LOVELY [id number]) E-signed By Stephane Doshi, PT, ATC PT OP Daily Progress Note Visit Information Note Type Re-Evaluation Visit Number 5 Insurance Information Insurance Name Medicare B Treating Diagnosis R shoulder pain R shoulder ROM and strength deficits Referring MD Craven Subjective Subjective Because of continued right shoulder pain and physical limitations, Emilie had the R shoulder replaced (Reverse TSA) on 05/08/25- 17 days ago. She feels the procedure went well and she is experiencing steady gains with pain control/lessening and small active range of motion . Sleeping is difficult getting 3 hours sustained before awakening. Sleeping on her couch with pillows propping her up. Has driven her car a couple times over the past week. Pain Comments Low 10 High 03/29 Date of Last 05/20/25 Physician Visit Date of Surgery (If 05/08/25 applicable) Precautions Treatment Sling during sleep and when up and active or in public. Precautions/ Has removed when stationary in her home. Contraindications Objective Other/Pertinent R shoulder secured in sling. Objective Incision is healing well, mild pink around incision edges, raised appearance. Minimal brusing. PROM: Flex 110, Abd 90, ER 0, IR 40 Elbow and wrist AROM WNL's Patient Instructed Yes in Risks/Benefits Manual Therapy Techniques Manual Therapy 30 Minutes (minutes) Manual Therapy GH and ST joint mobilization Techniques PROM all patterns, ER to zero only. Soft tissue decongestive work to R UE. Other Interventions Provided Other Interventions GameReady Provided R shoulder Other Interventions 15 Untimed Minutes Treatment Minutes Untimed Code 15 Treatment Minutes Timed Code Treatment 30 Minutes Total Treatment Time 45 Billing Units Manual Therapy Units 2 Vasopneumatic Device 1 Units Assessment/Impression Assessment/ Emilie appear to be progressing well since her reverse R Impression TSA procedure 2x1/2 weeks ago. Passive range is excellent already and minimal bruising or swelling exists. The cold therapy and compression was enjoyed by Emilie and a procedure highly recommended for the next few weeks. Primary Functional All ADL's-washing hair, prepping meals, toileting. Limitations Driving Sleeping Plan of Care Physical Therapy NEW Goals 1.Improve R shoulder active range to 120 degrees to allow ease with washing hair. 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 3.Improve sleep duration to > 6 hours per evening. 4.Decrease pain average to 1-2/10. Daily Plan of Care Continue per POC Recertification Information Initial 03/13/25 Certification Date Recertification 05/26/25 Start Date Recertification Due 08/26/25 Date Reasons to Continue post op R shld TSA Skilled Therapy -pain -limited ROM -strength deficits -compensated ADL performance -difficulty sleeping Rehabilitation excellent Potential Continued Plan of Manual therapy Care and Therapeutic exercise Interventions Cryotherapy
== END 2025-08-11 08:06 | disposition home or self-care (01) ==
PROVIDERS: PCP Family Medicine; Visit Provider Orthopaedic Surgery Sports Medicine
DX: Z48.89 Encounter for other specified surgical aftercare (principal); M75.112 Incomplete rotator cuff tear or rupture of left shoulder, not specified as traumatic; M75.111 Incomplete rotator cuff tear or rupture of right shoulder, not specified as traumatic; Z96.611 Presence of right artificial shoulder joint; M19.011 Primary osteoarthritis, right shoulder; M19.012 Primary osteoarthritis, left shoulder; M75.22 Bicipital tendinitis, left shoulder; Z51.89 Encounter for other specified aftercare
CPT/HCPCS: 97016; 97032; 97110; 97140; 97161